=== PATIENT | male | born 1945 | race African-American/Black ===

== ENCOUNTER 2016-08-20 13:10 | Inpatient (IN) | payer OTHER ==
[~2016-08-20] VITALS: Ht 182.9 cm; Wt 65.4 kg
[~2016-08-20 13:10] MED LIST: CARB25TA PO; CLON.1 PO; GLIP5 PO
[2016-08-20 13:20] VITALS: BP 118/74; PULSE 82; RESP 16; TEMP 98.7; O2SAT 100
[2016-08-20 13:46] LABS: BASOPHIL % 0.4 % (0.0-2.0); EOSINOPHIL % 0.6 % (0.0-4.0); HEMATOCRIT 33.6 % (39.0-51.0); HEMO FLAGS DIFF FINAL; LYMPH % 25.1 % (9.0-44.0); LYMPHOCYTE # 1.2 TH/MM3 (1.0-4.8); MEAN CELL VOLUME 89.8 FL (80.0-100.0); MEAN CORPUSCULAR HEMOGLOBIN 29.6 PG (27.0-34.0); MONO % 8.8 % (0.0-8.0); NEUT % 65.1 % (16.0-70.0); PLATELET COUNT 138 TH/MM3 (150-450); RED BLOOD COUNT 3.74 MIL/MM3 (4.50-5.90); RED CELL DISTRIBUTION WIDTH 13.1 % (11.6-17.2); WHITE BLOOD COUNT 4.6 TH/MM3 (4.0-11.0)
--- NOTE | 2016-08-20 13:54 | PD ---
HPI Chief Complaint: Psychiatric Symptoms Time Seen by Provider: 13:51 Travel History International Travel<30 days: No Contact w/Intl Traveler<30days: No Traveled to known affect area: No History of Present Illness HPI 71-year-old male presents to the emergency Department under Beck act by psychiatrist. He apparently has history of schizophrenia, depression, Parkinson 's disease, AMS. According to the Beck act, the patient has been aggressive. And has been spitting out his medications. He was placed under Beck act by psychiatrist to stabilize his medications. The patient is alert and oriented to person and place, but not time. This appears to be his baseline. He continues to talk about possible worms in his back. He does have abrasions to the back. The patient does not answer questions appropriately and talks about worms instead. PFSH Past Medical History Arthritis: No Blood Disorders: No Heart Rhythm Problems: No Cancer: No Cardiovascular Problems: Yes (HTN) High Cholesterol: No Chemotherapy: No Chest Pain: No Congestive Heart Failure: No Diminished Hearing: Yes (R EAR) Endocrine: No Gastrointestinal Disorders: No Hypertension: Yes Immune Disorder: No Kidney Stones: No Musculoskeletal: Yes (DJD) Neurologic: No Parkinson's Disease: Yes Psychiatric: No Reproductive: Yes (DIFFICULTY URINATING CHRONICALLY) Respiratory: No Myocardial Infarction: No Radiation Therapy: No Renal Failure: No Sickle Cell Disease: No Sleep Apnea: No Past Surgical History AICD: No Arteriovenous Shunt: No Ear Surgery: No Endocrine Surgery: No Eye Surgery: No Insulin Pump: No Joint Replacement: No Oral Surgery: No Pacemaker: No Other Surgery: Yes (CYST REMOVED FROM BACK) Social History Alcohol Use: Yes (RARE) Tobacco Use: No (QUIT ) Substance Use: No Allergies-Medications (Allergen,Severity, Reaction): Coded Allergies: Penicillin (Verified Allergy, Mild, SWELLING, 08/20/16) Reported Meds & Prescriptions Reported Meds & Active Scripts Active Reported Glucotrol (Glipizide) 5 Mg Tab Unknown Dose PO Catapres (Clonidine HCl) 0.1 Mg Tab Unknown Dose PO Q8HR Sinemet 25/100 (Carbidopa/Levodopa) 25 Mg/100 Mg Tab Unknown Dose PO BID Review of Systems Except as stated in HPI: all other systems reviewed are Neg Physical Exam Narrative GENERAL: Well-nourished, well-developed male patient, afebrile. SKIN: Focused skin assessment warm/dry. Patient has superficial abrasions to the back. HEAD: Normocephalic. Atraumatic. EYES: No scleral icterus. No injection or drainage. NECK: Supple, trachea midline. No JVD or lymphadenopathy. CARDIOVASCULAR: Regular rate and rhythm without murmurs, gallops, or rubs. RESPIRATORY: Breath sounds equal bilaterally. No accessory muscle use. Lungs sounds are clear to auscultation. GASTROINTESTINAL: Abdomen soft, non-tender, nondistended. MUSCULOSKELETAL: No cyanosis, or edema. BACK: Nontender without obvious deformity. No CVA tenderness. PSYCHIATRIC: Patient does not answer questions appropriately and talks about worms in his back. He is alert and oriented to person and place. Data Data Last Documented VS Vital Signs Date Time Temp Pulse Resp B/P Pulse Ox O2 Delivery O2 Flow Rate FiO2 08/20/16 13:20 98.7 82 16 118/74 100 Orders Complete Blood Count With Diff (08/20/16 13:27) Comprehensive Metabolic Panel (08/20/16 13:27) Psych Screen (08/20/16 13:27) Drug Screen, Random Urine (08/20/16 13:27) Urinalysis - C+S If Indicated (08/20/16 13:49) Valproic Acid (Depakene) (08/20/16 13:49) Ct Brain W/O Iv Contrast(Rout) (08/20/16 ) Cath For Specimen (08/20/16 14:40) Labs Laboratory Tests Test 08/20/16 08/20/16 13:20 14:50 White Blood Count 4.6 TH/MM3 Red Blood Count 3.74 MIL/MM3 Hemoglobin 11.1 GM/DL Hematocrit 33.6 % Mean Corpuscular Volume 89.8 FL Mean Corpuscular Hemoglobin 29.6 PG Mean Corpuscular Hemoglobin 33.0 % Concent Red Cell Distribution Width 13.1 % Platelet Count 138 TH/MM3 Mean Platelet Volume 8.9 FL Neutrophils (%) (Auto) 65.1 % Lymphocytes (%) (Auto) 25.1 % Monocytes (%) (Auto) 8.8 % Eosinophils (%) (Auto) 0.6 % Basophils (%) (Auto) 0.4 % Neutrophils # (Auto) 3.0 TH/MM3 Lymphocytes # (Auto) 1.2 TH/MM3 Monocytes # (Auto) 0.4 TH/MM3 Eosinophils # (Auto) 0.0 TH/MM3 Basophils # (Auto) 0.0 TH/MM3 CBC Comment DIFF FINAL Differential Comment Sodium Level 140 MEQ/L Potassium Level 4.2 MEQ/L Chloride Level 104 MEQ/L Carbon Dioxide Level 28.1 MEQ/L Anion Gap 8 MEQ/L Blood Urea Nitrogen 29 MG/DL Creatinine 1.61 MG/DL Estimat Glomerular Filtration 51 ML/MIN Rate Random Glucose 184 MG/DL Calcium Level 8.6 MG/DL Total Bilirubin 0.3 MG/DL Aspartate Amino Transf 17 U/L (AST/SGOT) Alanine Aminotransferase 17 U/L (ALT/SGPT) Alkaline Phosphatase 112 U/L Total Protein 7.3 GM/DL Albumin 3.6 GM/DL Valproic Acid (Depakene) Level 44 MCG/ML Urine Color YELLOW Urine Turbidity CLEAR Urine pH 6.0 Urine Specific [place] 1.027 Urine Protein TRACE mg/dL Urine Glucose (UA) NEG mg/dL Urine Ketones NEG mg/dL Urine Occult Blood NEG Urine Nitrite NEG Urine Bilirubin NEG Urine Urobilinogen 4.0 MG/DL Urine Leukocyte Esterase NEG Urine RBC 2 /hpf Urine WBC LESS THAN 1 /hpf Urine Squamous Epithelial <1 /hpf Cells Urine Mucus FEW /lpf Microscopic Urinalysis Comment CULT NOT INDICATED Urine Opiates Screen NEG Urine Barbiturates Screen NEG Urine Amphetamines Screen NEG Urine Benzodiazepines Screen NEG Urine Cocaine Screen NEG Urine Cannabinoids Screen NEG MDM Medical Decision Making Medical Screen Exam Complete: Yes Emergency Medical Condition: Yes Medical Record Reviewed: Yes Interpretation(s) CT brain - CONCLUSION: Normal examination. Differential Diagnosis Schizophrenia versus depression versus electrolyte abnormality versus intracranial abnormality Narrative Course 71-year-old male presents to the emergency department under Beck act by psychiatrist at his nursing facility. According the Beck act, he has been more aggressive with staff and spitting out his medications. CBC, CMP, Depakote level, UA, urine drug screen, CT of the brain are ordered and pending. CBC shows no acute abnormality. CMP shows BUN 29, creatinine 1.61, glucose 184. UA shows no acute infection. UDS is negative. Depakote level is 44. CT of the brain is normal. Patient is medically cleared for psychiatric screening and disposition. Mental health screening discussed with the patient. Psychiatric screen ordered. Diagnosis Primary Impression: Schizophrenia Qualified Code: F20.9 - Schizophrenia, unspecified type Additional Instructions: Patient is medically cleared for psychiatric screening and disposition. Condition: Stable RafiChelsey correa CHARLI August 20, 2016 13:54
[2016-08-20 14:19] LABS: ALT (GPT) 17 U/L (12-78); ANION GAP 8 MEQ/L (5-15); AST (GOT) 17 U/L (15-37); BICARBONATE 28.1 MEQ/L (21.0-32.0); BLOOD UREA NITROGEN 29 MG/DL (7-18); CHLORIDE 104 MEQ/L (98-107); GLOMERULAR FILTRATION RATE 51 ML/MIN (>89); POTASSIUM 4.2 MEQ/L (3.5-5.1); SODIUM (NA) 140 MEQ/L (136-145)
[2016-08-20 14:22] LABS: ALKALINE PHOSPHATASE 112 U/L (45-117); TOTAL BILIRUBIN ADULT 0.3 MG/DL (0.2-1.0)
--- NOTE | 2016-08-20 14:36 | RADRPT ---
EXAM DATE/TIME: 08/20/2016 14:08 [place] COMPARISON: No previous studies available for comparison. INDICATIONS : ALTERED MENTAL STATUS. RADIATION DOSE: 56.79 CTDIvol (mGy) MEDICAL HISTORY : Hypertension. Parkinsons. SURGICAL HISTORY : None. ENCOUNTER: Initial ACUITY: 1 day PAIN SCALE: 2/10 LOCATION: cranial TECHNIQUE: Multiple contiguous axial images were obtained of the head. Using automated exposure control and adj ustment of the mA and/or kV according to patient size, radiation dose was kept as low as reasonably a chievable to obtain optimal diagnostic quality images. FINDINGS: CEREBRUM: The ventricles are normal for age. No evidence of midline shift, mass lesion, hemorrhage or acute in farction. No extra-axial fluid collections are seen. POSTERIOR FOSSA: The cerebellum and brainstem are intact. The 4th ventricle is midline. The cerebellopontine angle i s unremarkable. EXTRACRANIAL: The visualized portion of the orbits is intact. SKULL: The calvaria is intact. No evidence of skull fracture. CONCLUSION: Normal examination. Loyd Adames MD on August 20, 2016 at 14:22 Board Certified Radiologist. This report was verified electronically.
[2016-08-20 15:30] LABS: BLOOD, URINE NEG (NEG); COMMENT (UR) CULT NOT INDICATED; CULTURE IF INDICATED CULT NOT INDICATED; GLUCOSE,URINE NEG (NEG); KETONE, URINE NEG (NEG); MUCUS URINE FEW /lpf (OCC); NITRITE,URINE NEG (NEG); SQUAMOUS EPITHELIAL CELL URINE <1 /hpf (0-5); URINE COLOR YELLOW (YELLW/STRAW)
[2016-08-20 15:53] LABS: AMPHETAMINE, URINE NEG (NEG); BARBITURATES, URINE NEG (NEG); COCAINE, URINE NEG (NEG)
[2016-08-20] MEDS ORDERED: SINE25TA PO (16:57)
[2016-08-20] MEDS ORDERED: BICA50TA PO (16:57)
[2016-08-20] MEDS ORDERED: ASPI81CH3 CHEW (16:57)
[2016-08-20] MEDS ORDERED: ATOR20TA15 PO (16:57)
[2016-08-20] MEDS ORDERED: LACT10SO PO (17:01)
[2016-08-20] MEDS ORDERED: GABA100C4 PO (17:01)
[2016-08-20] MEDS ORDERED: DEPA500T3 PO (17:01)
[2016-08-20] MEDS ORDERED: RISP1 PO (17:11)
[2016-08-20] MEDS ORDERED: FLEEENE3 RECTAL (17:11)
[2016-08-20] MEDS ORDERED: MAPA325T PO (17:11)
[2016-08-20] MEDS ORDERED: SERT-129 PO (17:11)
[2016-08-20] MEDS ORDERED: LOPE2CAP PO (17:11)
[2016-08-20] MEDS ORDERED: MYLASUS2 PO (17:11)
[2016-08-20] MEDS ORDERED: LISI-515 PO (17:11)
[2016-08-20] MEDS ORDERED: DULC10SU3 RECTAL (17:11)
[2016-08-20] MEDS ORDERED: THERTAB27 PO (17:11)
[2016-08-20] MEDS ORDERED: LOPE1LIQ3 PO (17:15)
[2016-08-20 17:16] VITALS: BP 180/91; PULSE 80; RESP 18; O2SAT 95
[2016-08-20] MEDS ORDERED: LORA-373 PO (17:23)
[2016-08-20] MEDS ORDERED: TEARSOL10 EACH EYE (17:23)
[2016-08-20] MEDS ORDERED: MILKSUS PO (17:23)
[2016-08-20 18:49] VITALS: BP 175/86; PULSE 80; RESP 20; O2SAT 96
[2016-08-20 19:34] VITALS: BP 169/98; PULSE 78; RESP 20; O2SAT 100
[2016-08-20] MEDS ORDERED: HALOPERIDOL LACTATE 5 MG/ML AMP IM ONE (21:45)
[2016-08-20] MEDS ORDERED: SOD PHOSPHATE/SOD BIPHOSPHATE (ADULT) ENEMA 133ML RECTAL PRN (22:00)
[2016-08-20] MEDS ORDERED: ALUMINUM/MAGNESIUM/SIMETH 30 ML CUP PO PRN ×2 (22:00)
[2016-08-20] MEDS ORDERED: MAGNESIUM HYDROXIDE SUSP 30 ML CUP PO PRN (22:00)
[2016-08-20] MEDS ORDERED: BISACODYL 10 MG SUPP RECTAL PRN (22:00)
[2016-08-20] MEDS ORDERED: ARTIFICIAL TEARS OPTH SOLN 15 ML BTL EACH EYE PRN (22:00)
[2016-08-20] MEDS: LORazepam 2 MG/ML VIAL - age > 65 yrs IM PRN (22:01)
[2016-08-20 23:10] VITALS: BP 168/91; PULSE 75; RESP 20; TEMP 98.8; O2SAT 97
[2016-08-21 04:55] VITALS: BP 173/94; PULSE 60; RESP 18; TEMP 98.5; O2SAT 97
[2016-08-21] MEDS: CARBIDOPA/LEVODOPA 25 MG/100 MG TAB PO SCH ×3 (08:28→17:20)
[2016-08-21] MEDS: MULTIVITAMINS/MINERALS THERAPEUTIC TAB PO SCH (08:28)
[2016-08-21] MEDS: ASPIRIN 81 MG CHEW TAB PO SCH (08:28)
[2016-08-21] MEDS: LACTULOSE SYRUP 20 GM/30 ML CUP PO SCH (08:28)
[2016-08-21] MEDS ORDERED: LISINOPRIL 20 MG TAB PO SCH (09:00)
[2016-08-21] MEDS: BICALUTAMIDE 50 MG TAB PO SCH (09:00)
--- NOTE | 2016-08-21 11:37 | HHI.HP ---
Provisional Diagnosis Admission Date August 20, 2016 at 21:48 [place] I. 1. Schizophrenia, undifferentiated type 2. Rule out major neurocognitive disorder with associated behavioral disturbance [place] II. Deferred [place] V. GAF is unclear at present Certification of Person's Competence To Provide Express and Informed Consent I have personally examined Rolando Brar , a person being served at [facility] on, August 21, 2016 11:37. Express and informed consent means consent voluntarily given in writing, by a competent person, after sufficient explanation and disclosure of the subject matter involved to enable the person to make a knowing and willful decision without any element of force, fraud, deceit, duress, or other form of constraint or coercion. This person is 18 years of age or older, is not now known to be incompetent to consent to treatment with a guardian advocate, and does not have a health care surrogate or proxy currently making medical treatment decisions. I have found this person to be one of the following: [] Competent to provide express and informed consent, as defined above, for voluntary admission to this facility and is competent to provide express and informed consent for treatment. He/she has the consistent capacity to make well reasoned, willful, and knowing decisions concerning his or her medical or mental health treatment. The person fully and consistently understands the purpose of the admission for examination/placement and is fully capable of personally exercising all rights assured [place] [x] Incompetent to provide express and informed consent to voluntary admission, and this is incompetent to provide express and informed consent to treatment. The person must be transferred to involuntary status and a petition for a guardian advocate filed with the Circuit Court. [] Refusing to provide express and informed consent to voluntary admission but is competent to provide express and informed consent for treatment. The person must be discharged or transferred to involuntary status. Form shall be completed within 24 hours of a person's arrival at the receiving facility and filed in the clinical record of each person: 1. Admitted on a voluntary basis 2. Permitted to provide express and informed consent to his/her own treatment 3. Allowed to transfer from involuntary to voluntary status 4. Prior to permitting a person to consent to his or her own treatment after having been previously found incompetent to consent to treatment. History of Present Illness Capacity: Lacks Capacity HPI Mr. Brar is a 71 year-old male with a history of schizophrenia , depression and anxiety disorder per notes from his outpatient psychiatrist who presents from his [facility] under a Beck act by [facility]'s office alleging that the patient has been delusional and acting out at his facility. I have reviewed the documentation that accompanies the patient from the facility including a medication administration record, notes from the patient's outpatient psychiatrist as well as nursing notes from the facility. Reviewing I electronic medical record, I see no prior psychiatric contact at [facility]. Patient seen and examined. Chart reviewed. Case discussed with nurse on the inpatient psychiatric unit. Per nursing staff, there has been no behavioral disturbance observed here on the unit. On my examination today, the patient presents as confused. He is calm and generally cooperative with examination however. Mental status testing is detailed below. He denies any audiovisual hallucinations. I can elicit no frankly delusional beliefs, although his thoughts do seem fairly disorganized. He denies any suicidal or homicidal ideation. He denies any issues with mood. Psychiatric interview is limited because of his current cognitive impairment. I am unable to obtain any past psychiatric, family, chemical dependency or social history from this patient because of his degree of psychiatric impairment. Review of Systems ROS Limitations: Poor Historian Other Unable to obtain meaningful ROS because of current cognitive impairment. Past Psych History Psychological trauma history Unable to obtain from patient because of cognitive impairment. Violence risk - others (6 mos) Indeterminate. Allegations of acting out at referring facility not observed here on the unit. Violence risk - self (6 mos) Indeterminate. Substance Abuse History Drugs/Alcohol past 12 months Unable to obtain from patient Past Family Social History Coded Allergies: Penicillin (Verified Allergy, Mild, SWELLING, 08/20/16) Past Medical History See electronic medical record Reported Medications Artificial Tear Solution Opth Drops (Tears Again Opth Drops)1.4% Soln1 Drop EACH EYE QID PRN (DRY EYE) 08/20/16 Lorazepam 0.5 Mg Tab0.5 Mg PO TID PRN (AGITATION) Ref 0 08/20/16 Magnesium Hydroxide Liq (Milk of Magnesia Liq)400 Mg/5 Ml Susp30 Ml PO Q4HR PRN (CONSTIPATION) #1 BOTTLE Ref 0 08/20/16 Loperamide Liq 1 Mg/5 Ml Liq2 Mg PO DIRECTED PRN (DIARRHEA) #1 BOTTLE Ref 0 Give 4mg (20ml) for the initial dose then 2 mg (10 mL) after each loose stool. Not to exceed 16 mg (80 mL) per day. 08/20/16 Loperamide 2 Mg Cap2 Mg PO DIRECTED PRN (DIARRHEA) Ref 0 Give two capsules for the initial dose, then one capsule after each loose stool. Not to exceed 8 capsules per day. 08/20/16 Sodium Phosphates Rectal (Fleet Enema Rectal)7-19 Gm/118 Ml [id number] Ml RECTAL DAILY PRN (IF NO BM X 48HRS FROM SUPP) Ref 0 08/20/16 Bisacodyl Supp (Dulcolax Supp)10 Mg Supp10 Mg RECTAL DAILY PRN (IF NO BM FROM MOM) #12 SUPP Ref 0 08/20/16 Acetaminophen (Mapap)325 Mg Ryw002 Mg PO Q6HR PRN (MUSCULAR BACK PAIN) Ref 0 08/20/16 Qzrpmiqa-Qrrynruoc-Xpgkfittyyr Liq (Mylanta Liq)200-200-20 Mg/5 Ml Susp30 Ml PO Q4HR PRN (INDIGESTION) Ref 0 Take between meals or as directed. Shake well. Maximum 120 ml/24 hrs. 08/20/16 Risperidone (Risperdal)1 Mg Tab1 Mg PO BID #60 TAB Ref 0 08/20/16 Multiple Vitamins W/ Minerals (Theragran-M)1 Tab1 Tab PO DAILY Ref 0 08/20/16 Sertraline 100 Mg [id number] Mg PO DAILY #30 TAB Ref 0 08/20/16 Lisinopril 20 Mg Tab20 Mg PO BID #30 TAB Ref 0 08/20/16 Lactulose Liq 10 Gm/15 Ml Soln10 Ml PO DAILY Ref 0 08/20/16 Gabapentin 100 Mg [id number] Mg PO HS #30 CAP Ref 0 08/20/16 Divalproex ER (Depakote ER)500 Mg Vgloa657 Mg PO HS #30 TAB Ref 0 08/20/16 Carbidopa-Levodopa (Sinemet)25-100 Mg Tab1 Tab PO TID #90 TAB Ref 0 08/20/16 Bicalutamide 50 Mg Tab50 Mg PO DAILY #30 TAB Ref 0 Hazardous agent; use appropriate precautions for handling & disposal. 08/20/16 Atorvastatin 20 Mg Tab20 Mg PO HS #30 TAB Ref 0 08/20/16 Aspirin (Aspirin 81 Low Dose)81 Mg Chew81 Mg CHEW DAILY #30 TAB 08/20/16 Discontinued Reported Medications Glipizide (Glucotrol)5 Mg TabUnknown Dose PO 03/16/15 Clonidine Hcl (Catapres)0.1 Mg TabUnknown Dose PO Q8HR 03/16/15 Carbidopa-Levodopa (Sinemet 25/100)25 Mg/100 Mg TabUnknown Dose PO BID 03/16/15 Current Medications Medications (Trade) Dose Ordered Sig/[place] Route Start Time Stop Time Status Last Admin (Ativan) 0.5 mg Q12H PRN PO 08/20/16 22:00 (Ativan Inj) 0.5 mg Q12H PRN IM 08/20/16 22:00 08/20/16 22:01 (Tylenol) 650 mg Q4H PRN PO 08/20/16 22:00 (Milk Of Magnesia Liq) 30 ml DAILY PRN PO 08/20/16 22:00 (Aspirin Chew) 81 mg DAILY PO 08/21/16 09:00 08/21/16 08:28 (Lipitor) 20 mg HS PO 08/21/16 21:00 (Casodex) 50 mg DAILY PO 08/21/16 09:00 (Sinemet 25-100 Mg) 1 tab TID PO 08/21/16 09:00 08/21/16 08:28 (Neurontin) 100 mg HS PO 08/21/16 21:00 (Lactulose Liq) 10 ml DAILY PO 08/21/16 09:00 08/21/16 08:28 (Prinivil) 20 mg BID PO 08/21/16 09:00 08/21/16 08:28 (Theragran M Tab) 1 tab DAILY PO 08/21/16 09:00 08/21/16 08:28 (Mag-Al Plus Susp Liq) 30 ml Q4H PRN PO 08/20/16 22:00 (Dulcolax Supp) 10 mg DAILY PRN RECTAL 08/20/16 22:00 (Fleets Enema (Adult)) 133 ml DAILY PRN RECTAL 08/20/16 22:00 (Tears Naturale Opth Soln) 1 drop QID PRN EACH EYE 08/20/16 22:00 Family History Unable to obtain from patient Social History Unable to obtain from patient Patient's Strengths (min. 2) In a monitored setting. Verbally fluent. Physical Exam Physical examination was completed by ED provider. On my examination today, patient appears to be somewhat thin but well-developed and in no acute physical distress. Patient does have a history per documentation from facility of parkinsonism, but I cannot appreciate any hand tremor or cogwheeling on my examination today. No other motoric abnormalities noted. Laboratories and vitals signs reviewed: Vital Signs Vital Signs Date Time Temp Pulse Resp B/P Pulse Ox O2 Delivery O2 Flow Rate FiO2 08/21/16 04:55 98.5 60 18 173/94 97 08/20/16 19:34 Room Air Lab Results Item Value Date Time White Blood Count 4.6 TH/MM3 08/20/16 1320 Hemoglobin 11.1 GM/DL L 08/20/16 1320 Platelet Count 138 TH/MM3 L 08/20/16 1320 Sodium Level 140 MEQ/L 08/20/16 1320 Potassium Level 4.2 MEQ/L 08/20/16 1320 Chloride Level 104 MEQ/L 08/20/16 1320 Carbon Dioxide Level 28.1 MEQ/L 08/20/16 1320 Blood Urea Nitrogen 29 MG/DL H 08/20/16 1320 Creatinine 1.61 MG/DL H 08/20/16 1320 Aspartate Amino Transf (AST/SGOT) 17 U/L 08/20/16 1320 Alanine Aminotransferase (ALT/SGPT) 17 U/L 08/20/16 1320 Alkaline Phosphatase 112 U/L 08/20/16 1320 Urine Opiates Screen NEG 08/20/16 1450 Urine Barbiturates Screen NEG 08/20/16 1450 Urine Amphetamines Screen NEG 08/20/16 1450 Urine Benzodiazepines Screen NEG 08/20/16 1450 Urine Cocaine Screen NEG 08/20/16 1450 Urine Cannabinoids Screen NEG 08/20/16 1450 Valproic Acid (Depakene) Level 44 MCG/ML L 08/20/16 1320 Alcohol level was not obtained. Reviewing old laboratories, thrombocytopenia appears to be chronic, at least since 2011, but the anemia and decreased GFR are both new. Last Impressions Head CT 08/20/16 0000 Signed Impressions: Service Date/Time: Saturday, August 20, 2016 14:08 - CONCLUSION: Normal examination. Loyd Adames MD Mental Status Examination Patient is in hospital [facility]. He is somewhat disheveled. He is awake and alert and oriented to person only. He is able to register 1 out of 3 items but recalled 0 out of 3 at 3 minutes. He is able to name one out of 2 items. He is unable to repeat a phrase. He is unable to spell the word world backwards. Speech is within normal limits for rate, tone and volume. Language and fund of knowledge seem reduced. Mood is fair and affect is blunted. Thought process somewhat disorganized. Associations somewhat loose. No irina delusions. Denies audiovisual hallucinations. Denies suicidal or homicidal ideation. Insight and judgment are poor presently. Assessment & Plan Problem List: (1) Schizophrenia ICD Code: F20.9 Assessment & Plan This is a 71-year-old male with a history of schizophrenia who presents in transfer from nursing facility under a Beck act. Patient presents to me as chiefly cognitively impaired, and I wonder if his current presentation is not more consistent with dementia with behavioral disturbance. Depakote level is subtherapeutic, but this is to be expected given the low dose that he is prescribed on an outpatient basis. I will admit the patient to the inpatient psychiatric unit for observation and stabilization of necessary. Admit inpatient. Involuntary status. I've completed first opinion. Consult for second opinion. Request healthcare surrogate and guardian advocate. Check a TSH, ammonia, B12, RPR in case cognitive impairment is new. Head CT was performed in the ED. Patient's home psychotropics include Depakote ER 500 mg at bedtime, Zoloft 100 mg daily, Risperdal 0.5 mg twice daily. In light of patient's anemia and thrombocytopenia, which may be Depakote-induced, I will hold his Depakote for now as it does not appear this is for a seizure indication. I will continue his Zoloft. Given his chart history of parkinsonism, I will replace the Risperdal with low-dose Seroquel, 25 mg twice daily to start. I will continue patient's general medical medications as ordered, except that I will hold his lisinopril in light of his decreased GFR. I will consult the hospitalist for further medical management. Low-dose Haldol as needed for agitation, low-dose Ativan as needed for anxiety, Benadryl as needed for EPS, melatonin as needed for sleep. Vitals every shift. Counselor to see and obtain collateral. Disposition planning. Estimated length of stay: 10-13 days, longer if new placement is required. Discharge Planning Pending stabilization Request HC Surrog/Guard Advoc?: Yes Problem Qualifiers (1) Schizophrenia: Qualified Code: F20.3 - Undifferentiated schizophrenia Cr Chanel MD August 21, 2016 11:37
[2016-08-21] MEDS ORDERED: cloNIDine HCL 0.1 MG TAB PO PRN ×3 (13:15→14:00)
[2016-08-21] MEDS ORDERED: HALOPERIDOL LACTATE 5 MG/ML AMP IM PRN (13:15)
[2016-08-21] MEDS ORDERED: HALOPERIDOL 2 MG TAB PO PRN (13:15)
[2016-08-21] MEDS ORDERED: NIFEdipine 30 MG SUSTAINED RELEASE TAB PO ONE (13:45)
--- NOTE | 2016-08-21 13:47 | PD.CONS ---
HPI Service [facility] Consult Requested By Reason for Consult medical management; hypertension/ anemia Primary Care Physician [facility] Diagnoses: History of Present Illness patient is a 71 y/o male with history of schizophrenia and parkinson's disease who was admitted to the psych unit because of aggressive behavior. patient is not a good historian and most of the information was obtained from the medical record. as part of the initial work-up he was noticed to have anemia and renal insufficiency for which the medicine was consulted. at the time of my evaluation he was resting comfortably with no distress with no chest pain, sob or abdominal pain. Review of Systems ROS Limitations: Poor Historian Past Family Social History Allergies: Coded Allergies: Penicillin (Verified Allergy, Mild, SWELLING, 08/20/16) Past Medical History hypertension dyslipidemia parkinson's disease schizophrenia Past Surgical History cyst removal from the back Reported Medications aspirin atorvastatin sinemet lisinopril Active Ordered Medications Current Medications Haloperidol Lactate (Haldol Inj) 5 mg ONCE ONCE IM Last administered on 21:45; Start 08/20/16 at 21:45; Stop 08/20/16 at 21:46; Status DC Lorazepam (Ativan) 0.5 mg Q12H PRN PO MODERATE TO SEVERE ANXIETY; Start at 22:00 Lorazepam (Ativan Inj) 0.5 mg Q12H PRN IM MODERATE TO SEVERE ANXIETY Last administered on 08/20/16 22:01; Start 08/20/16 at 22:00 Acetaminophen (Tylenol) 650 mg Q4H PRN PO Pain 1-5 or Temp >101F; Start at 22:00 Magnesium Hydroxide (Milk Of Magnesia Liq) 30 ml DAILY PRN PO CONSTIPATION; Start 08/20/16 at 22:00 Al Hydrox/Mg Hydrox/Simethicone (Mag-Al Plus Susp Liq) 30 ml Q6H PRN PO DYSPEPSIA; Start 08/20/16 at 22:00; Stop 08/20/16 at 22:00; Status DC Aspirin (Aspirin Chew) 81 mg DAILY PO Last administered on 08/21/16 08:28; Start 08/21/16 at 09:00 Atorvastatin Calcium (Lipitor) 20 mg HS PO ; Start 08/21/16 at 21:00 Bicalutamide (Casodex) 50 mg DAILY PO ; Start 08/21/16 at 09:00 Carbidopa/Levodopa (Sinemet 25-100 Mg) 1 tab TID PO Last administered on 08:28; Start 08/21/16 at 09:00 Gabapentin (Neurontin) 100 mg HS PO ; Start 08/21/16 at 21:00 Lactulose (Lactulose Liq) 10 ml DAILY PO Last administered on 08/21/16 08:28; Start 08/21/16 at 09:00 Lisinopril (Prinivil) 20 mg BID PO Last administered on 08/21/16 08:28; Start 08/21/16 at 09:00; Stop 08/21/16 at 13:20; Status DC Multivitamins/ Minerals Therapeutic (Theragran M Tab) 1 tab DAILY PO Last administered on 08/21/16 08:28; Start 08/21/16 at 09:00 Al Hydrox/Mg Hydrox/Simethicone (Mag-Al Plus Susp Liq) 30 ml Q4H PRN PO INDIGESTION; Start 08/20/16 at 22:00 Bisacodyl (Dulcolax Supp) 10 mg DAILY PRN RECTAL SEE LABEL COMMENTS; Start 08/20 at 22:00 Sodium Biphosphate/ Sodium Phosphate (Fleets Enema (Adult)) 133 ml DAILY PRN RECTAL SEE LABEL COMMENT; Start 08/20/16 at 22:00 Artificial Tears (Tears Naturale Opth Soln) 1 drop QID PRN EACH EYE DRY EYES; Start 08/20/16 at 22:00 Diphenhydramine HCl (Benadryl) 25 mg Q6H PRN PO EXTRA PYRAMIDAL SYMPTOMS; Start 08/21/16 at 13:15 Diphenhydramine HCl (Benadryl Inj) 25 mg Q6H PRN IM EPS, unable to take PO.; Start 08/21/16 at 13:15 Melatonin (Melatonin) 5 mg HS PRN PO INSOMNIA; Start 08/21/16 at 13:15 Haloperidol (Haldol) 2 mg Q8H PRN PO SEVERE AGITATION; Start 08/21/16 at 13:15 Haloperidol Lactate (Haldol Inj) 2 mg Q8H PRN IM SEVERE AGITATION; Start at 13:15 Quetiapine Fumarate (SEROquel) 25 mg BID PO ; Start 08/21/16 at 21:00 Clonidine (Catapres) 0.1 mg Q8HR PRN PO SBP>180 or DBP>100; Start 08/21/16 at 13 :15 Sertraline HCl (Zoloft) 100 mg DAILY PO ; Start 08/22/16 at 09:00 Social History ex-smoker. Physical Exam Vital Signs Vital Signs Date Time Temp Pulse Resp B/P Pulse Ox O2 Delivery O2 Flow Rate FiO2 08/21/16 04:55 98.5 60 18 173/94 97 08/20/16 23:10 98.8 08/20/16 23:10 75 20 168/91 97 08/20/16 19:34 78 20 169/98 100 Room Air 08/20/16 18:49 80 20 175/86 96 Room Air 08/20/16 17:16 80 18 180/91 95 Physical Exam GENERAL: This is a well-nourished, well-developed patient, in no apparent distress. SKIN: No rashes, ecchymoses or lesions. Cool and dry. HEAD: Atraumatic. Normocephalic. No temporal or scalp tenderness. EYES: Pupils equal round and reactive. Extraocular motions intact. No scleral icterus. No injection or drainage. ENT: Nose without bleeding, purulent drainage or septal hematoma. Throat without erythema, tonsillar hypertrophy or exudate. Uvula midline. Airway patent. NECK: Trachea midline. No JVD or lymphadenopathy. Supple, nontender, no meningeal signs. CARDIOVASCULAR: Regular rate and rhythm without murmurs, gallops, or rubs. RESPIRATORY: Clear to auscultation. Breath sounds equal bilaterally. No wheezes , rales, or rhonchi. GASTROINTESTINAL: Abdomen soft, non-tender, nondistended. No hepato-splenomegaly , or palpable masses. No guarding. MUSCULOSKELETAL: Extremities without clubbing, cyanosis, or edema. No joint tenderness, effusion, or edema noted. No calf tenderness. Negative Homans sign bilaterally. NEUROLOGICAL: Awake and alert. Laboratory Laboratory Tests Test 08/20/16 14:50 Urine Color YELLOW Urine Turbidity CLEAR Urine pH 6.0 Urine Specific [place] 1.027 Urine Protein TRACE Urine Glucose (UA) NEG Urine Ketones NEG Urine Occult Blood NEG Urine Nitrite NEG Urine Bilirubin NEG Urine Urobilinogen 4.0 Urine Leukocyte Esterase NEG Urine RBC 2 Urine WBC LESS THAN 1 Urine Squamous Epithelial <1 Cells Urine Mucus FEW Microscopic Urinalysis Comment CULT NOT INDICATED Urine Opiates Screen NEG Urine Barbiturates Screen NEG Urine Amphetamines Screen NEG Urine Benzodiazepines Screen NEG Urine Cocaine Screen NEG Urine Cannabinoids Screen NEG Result Diagram: 08/20/16 1320 08/20/16 1320 Imaging Last Impressions Head CT 08/20/16 0000 Signed Impressions: Service Date/Time: Saturday, August 20, 2016 14:08 - CONCLUSION: Normal examination. Loyd Adames MD Assessment and Plan Assessment and Plan A/P - schizophrenia with aggressive behavior management per psych. -hypertension; lisniopril on hold due to renal insufficiency- one dose of procardia today- clonidien prn will monitor and adjust the regimen as needed. -renal insufficiency; looks chronic- will monitor the renal function -anemia- normocytic, normochromic -likely due to chronic disease- check the stool for blood and obtain the iron panel -parkinson's disease; resumed Sinemet -dyslipidemia; resumed statin thank you for the consult. Discussed Condition With the patient. Bowen Hartmann MD August 21, 2016 13:47
[2016-08-21 14:00] VITALS: BP 116/77
[2016-08-21 14:07] LABS: BASOPHIL % 0.5 % (0.0-2.0); HEMATOCRIT 36.3 % (39.0-51.0); HEMO FLAGS DIFF FINAL; LYMPH % 23.9 % (9.0-44.0); LYMPHOCYTE # 1.1 TH/MM3 (1.0-4.8); MEAN CELL VOLUME 90.7 FL (80.0-100.0); MEAN CORPUSCULAR HEMOGLOBIN 29.8 PG (27.0-34.0); MEAN CORPUSCULAR HGB CONC 32.8 % (32.0-36.0); MONO % 9.2 % (0.0-8.0); NEUT % 65.4 % (16.0-70.0); PLATELET COUNT 158 TH/MM3 (150-450); RED CELL DISTRIBUTION WIDTH 13.1 % (11.6-17.2); WHITE BLOOD COUNT 4.7 TH/MM3 (4.0-11.0)
[2016-08-21 14:27] LABS: ANION GAP 6 MEQ/L (5-15); BICARBONATE 27.2 MEQ/L (21.0-32.0); BLOOD UREA NITROGEN 27 MG/DL (7-18); CHLORIDE 103 MEQ/L (98-107); GLOMERULAR FILTRATION RATE 64 ML/MIN (>89); POTASSIUM 4.4 MEQ/L (3.5-5.1); SODIUM (NA) 136 MEQ/L (136-145)
[2016-08-21 14:35] LABS: TRANSFERRIN IRON PROFILE 227 MG/DL (200-360)
[2016-08-21] MEDS: LORazepam 2 MG/ML VIAL - age > 65 yrs IM PRN (14:36)
[2016-08-21 14:52] LABS: FERRITIN 185 NG/ML (26-388)
[2016-08-21 16:42] VITALS: BP 101/68; PULSE 79; RESP 16; TEMP 97.6; O2SAT 99
[2016-08-21] MEDS: ATORVASTATIN 20 MG TAB PO SCH (20:42)
[2016-08-21] MEDS: QUEtiapine FUMARATE 25 MG TAB PO SCH (20:42)
[2016-08-21] MEDS: GABAPENTIN 100 MG CAP PO SCH (20:42)
[2016-08-22 05:29] VITALS: BP 145/84; PULSE 54; RESP 18; TEMP 98.1; O2SAT 100
[2016-08-22 08:09] LABS: AUTOMATED NEUTROPHIL # 2.7 TH/MM3 (1.8-7.7); BASOPHIL % 0.4 % (0.0-2.0); EOSINOPHIL # 0.1 TH/MM3 (0-0.4); EOSINOPHIL % 1.6 % (0.0-4.0); HEMATOCRIT 33.2 % (39.0-51.0); HEMO FLAGS DIFF FINAL; LYMPH % 30.6 % (9.0-44.0); LYMPHOCYTE # 1.4 TH/MM3 (1.0-4.8); MEAN CELL VOLUME 89.8 FL (80.0-100.0); MEAN CORPUSCULAR HEMOGLOBIN 29.8 PG (27.0-34.0); MEAN CORPUSCULAR HGB CONC 33.1 % (32.0-36.0); MONO % 10.4 % (0.0-8.0); PLATELET COUNT 141 TH/MM3 (150-450); RED CELL DISTRIBUTION WIDTH 13.2 % (11.6-17.2); WHITE BLOOD COUNT 4.7 TH/MM3 (4.0-11.0)
[2016-08-22 08:37] LABS: BICARBONATE 28.7 MEQ/L (21.0-32.0)
[2016-08-22] MEDS: SERTRALINE HCL 100 MG TAB PO SCH (09:00)
[2016-08-22] MEDS: MULTIVITAMINS/MINERALS THERAPEUTIC TAB PO SCH ×2 (09:00→10:28)
[2016-08-22 09:10] VITALS: BP 124/81; PULSE 53
[2016-08-22] MEDS: ASPIRIN 81 MG CHEW TAB PO SCH (10:27)
[2016-08-22] MEDS: QUEtiapine FUMARATE 25 MG TAB PO SCH ×2 (10:27→20:48)
[2016-08-22] MEDS: CARBIDOPA/LEVODOPA 25 MG/100 MG TAB PO SCH ×3 (10:27→18:21)
[2016-08-22] MEDS: BICALUTAMIDE 50 MG TAB PO SCH (10:28)
[2016-08-22] MEDS: LORazepam 0.5 MG TAB age > 65 yrs PO PRN (10:30)
[2016-08-22] MEDS: LACTULOSE SYRUP 20 GM/30 ML CUP PO SCH (10:32)
--- NOTE | 2016-08-22 13:45 | HHI.PYPN ---
Subjective Remarks Patient seen and examined. Chart reviewed. Case discussed with nursing staff. On my examination today, the patient is sitting calmly in the day area. His cognitive status seems unchanged from yesterday. He seems to be mildly sedated , possibly related to psychotropics, although he did receive PRN doses of Ativan yesterday and this morning. No other evident side effects from medications. No other issues noted. Review of Systems ROS Limitations: Poor Historian Other Cognitive impairment limits ROS Objective Alert: Yes [place]: Person Mood: Calm Affect: Flat Memory Intact: Comment (impaired) Hallucinations: Other (no AVH) Delusions: No Delusion Type: Other (no delusions) Suicidal: Ideation (no SI voiced) Homicidal: Ideation (no HI voiced) Insight/Judgment Poor Remarks No motor abnormalities noted. Grooming and hygiene poor. Labs Test 08/21/16 08/22/16 13:52 06:36 White Blood Count 4.7 TH/MM3 4.7 TH/MM3 Red Blood Count 4.00 MIL/MM3 3.70 MIL/MM3 Hemoglobin 11.9 GM/DL 11.0 GM/DL Hematocrit 36.3 % 33.2 % Mean Corpuscular Volume 90.7 FL 89.8 FL Mean Corpuscular Hemoglobin 29.8 PG 29.8 PG Mean Corpuscular Hemoglobin 32.8 % 33.1 % Concent Red Cell Distribution Width 13.1 % 13.2 % Platelet Count 158 TH/MM3 141 TH/MM3 Mean Platelet Volume 8.8 FL 9.5 FL Neutrophils (%) (Auto) 65.4 % 57.0 % Lymphocytes (%) (Auto) 23.9 % 30.6 % Monocytes (%) (Auto) 9.2 % 10.4 % Eosinophils (%) (Auto) 1.0 % 1.6 % Basophils (%) (Auto) 0.5 % 0.4 % Neutrophils # (Auto) 3.0 TH/MM3 2.7 TH/MM3 Lymphocytes # (Auto) 1.1 TH/MM3 1.4 TH/MM3 Monocytes # (Auto) 0.4 TH/MM3 0.5 TH/MM3 Eosinophils # (Auto) 0.0 TH/MM3 0.1 TH/MM3 Basophils # (Auto) 0.0 TH/MM3 0.0 TH/MM3 CBC Comment DIFF FINAL DIFF FINAL Differential Comment Sodium Level 136 MEQ/L 138 MEQ/L Potassium Level 4.4 MEQ/L 4.0 MEQ/L Chloride Level 103 MEQ/L 103 MEQ/L Carbon Dioxide Level 27.2 MEQ/L 28.7 MEQ/L Anion Gap 6 MEQ/L 6 MEQ/L Blood Urea Nitrogen 27 MG/DL 27 MG/DL Creatinine 1.33 MG/DL 1.38 MG/DL Estimat Glomerular Filtration 64 ML/MIN 61 ML/MIN Rate Random Glucose 180 MG/DL 125 MG/DL Calcium Level 9.0 MG/DL 8.8 MG/DL Iron Level 71 MCG/DL Total Iron Binding Capacity 318 MCG/DL Percent Iron Saturation 22.3 % Ferritin 185 NG/ML Ammonia 14 MCMOL/L Vitamin B12 Level 676 PG/ML Thyroid Stimulating Hormone 0.771 uIU/ML 3rd Gen Rapid Plasma Reagin NON-REACTIVE Laboratories reviewed. GFR stable. Anemia and thrombocytopenia generally stable. TSH, B12, ammonia and RPR are unremarkable. Vitals/IOs Vital Signs Date Time Temp Pulse Resp B/P Pulse Ox O2 Delivery O2 Flow Rate FiO2 08/22/16 09:10 53 124/81 08/22/16 05:29 98.1 18 100 08/20/16 19:34 Room Air Intake and Output 08/21/16 08/21/16 08/22/16 08:00 16:00 00:00 Intake Total 480 ml 1440 ml Balance 480 ml 1440 ml Assessment & Plan Problem List: (1) Schizophrenia Assessment & Plan: Rule out major neurocognitive disorder ICD Code: F20.9 Assessment & Plan Continue Seroquel as ordered. Continue Zoloft as ordered. Continue to monitor on the inpatient unit. Continue other medications and care as ordered. Justification for Cont. Inpt. Impairment in self-care. High risk for decompensation in a restrictive environment. Discharge Planning Placement Request HC Surrog/Guard Advoc?: Yes Problem Qualifiers (1) Schizophrenia: Qualified Code: F20.3 - Undifferentiated schizophrenia Cr Chanel MD August 22, 2016 13:45
[2016-08-22] MEDS ORDERED: DEXTROSE 50% IN WATER 50 ML VIAL(D50) IV PUSH PRN (15:00)
[2016-08-22] MEDS ORDERED: GLUCAGON 1 MG/ML VIAL OTHER PRN (15:00)
[2016-08-22] MEDS: INSULIN ASPART SUPPLEMENTAL SCALE SQ SCH ×2 (16:00→20:49)
[2016-08-22] MEDS ORDERED: HALOPERIDOL LACTATE 5 MG/ML AMP IM ONE (18:15)
[2016-08-22] MEDS ORDERED: diphenhydrAMINE HCL 50 MG/ML VIAL IM ONE (18:15)
[2016-08-22 18:48] LABS: HEMOGLOBIN A1a 1.2 %; HEMOGLOBIN Ao 82.7 %; HEMOGLOBIN F 1.5 %; HEMOGLOBIN LA1C 2.1 %; HEMOGLOBIN P3 5.8 %
[2016-08-22 19:31] VITALS: BP 126/96; PULSE 77; RESP 17; TEMP 97.9
[2016-08-22] MEDS: GABAPENTIN 100 MG CAP PO SCH (20:48)
[2016-08-22] MEDS: ATORVASTATIN 20 MG TAB PO SCH (20:49)
[2016-08-22] MEDS: MELATONIN 5 MG TAB PO PRN (22:16)
[2016-08-23 05:53] VITALS: BP 134/80; PULSE 73; RESP 16; TEMP 97.4; O2SAT 97
[2016-08-23] MEDS: INSULIN ASPART SUPPLEMENTAL SCALE SQ SCH ×4 (07:00→21:32)
[2016-08-23] MEDS: QUEtiapine FUMARATE 25 MG TAB PO SCH ×2 (09:00→21:25)
[2016-08-23] MEDS: ASPIRIN 81 MG CHEW TAB PO SCH (09:14)
[2016-08-23] MEDS: MULTIVITAMINS/MINERALS THERAPEUTIC TAB PO SCH (09:14)
[2016-08-23] MEDS: SERTRALINE HCL 100 MG TAB PO SCH (09:14)
[2016-08-23] MEDS: CARBIDOPA/LEVODOPA 25 MG/100 MG TAB PO SCH ×3 (09:14→17:03)
[2016-08-23] MEDS: LACTULOSE SYRUP 20 GM/30 ML CUP PO SCH (09:15)
[2016-08-23] MEDS: BICALUTAMIDE 50 MG TAB PO SCH (09:15)
--- NOTE | 2016-08-23 12:37 | HHI.PR ---
Subjective Remarks Follow-up on patient with hypertension, anemia, Parkinson's disease, dyslipidemia and renal insufficiency. Patient seen and examined today. Patient is disoriented. Denies any fever, chills, nausea, vomiting, shortness of breath, chest pain or abdominal pain. Objective Vitals Vital Signs Date Time Temp Pulse Resp B/P Pulse Ox O2 Delivery O2 Flow Rate FiO2 08/23/16 05:53 97.4 73 16 134/80 97 08/22/16 19:31 97.9 77 17 126/96 I/O 08/22/16 08/22/16 08/22/16 08/23/16 08/23/16 08/23/16 07:00 15:00 23:00 07:00 15:00 23:00 Intake Total 120 ml 240 ml 0 ml 240 ml Balance 120 ml 240 ml 0 ml 240 ml Intake Oral 120 ml 0 ml 240 ml Oral Supplement 240 ml # Voids 2 2 1 Result Diagram: 08/22/16 0636 08/22/16 0636 Imaging Last Impressions Head CT 08/20/16 0000 Signed Impressions: Service Date/Time: Saturday, August 20, 2016 14:08 - CONCLUSION: Normal examination. Loyd Adames MD Objective Remarks GENERAL: This is a well-nourished, well-developed patient, in no apparent distress. Patient is sitting up in chair in community room. SKIN: No rashes, ecchymoses or lesions. Cool and dry. HEAD: Atraumatic. Normocephalic. EYES: Extraocular motions intact. No scleral icterus. No injection or drainage. ENT: Nose without bleeding, purulent drainage or septal hematoma. CARDIOVASCULAR: Regular rate and rhythm without murmurs, gallops, or rubs. RESPIRATORY: Clear to auscultation. Breath sounds equal bilaterally. No wheezes , rales, or rhonchi. GASTROINTESTINAL: Abdomen soft, non-tender, nondistended. No hepato-splenomegaly , or palpable masses. No guarding. MUSCULOSKELETAL: Extremities without clubbing, cyanosis, or edema. No joint tenderness, effusion, or edema noted. No calf tenderness. NEUROLOGICAL: Awake and alert. Disoriented. Medications and IVs Current Medications Medications (Trade) Dose Ordered Sig/[place] Route Start Time Stop Time Status Last Admin (Ativan) 0.5 mg Q12H PRN PO 08/20/16 22:00 08/22/16 10:30 (Ativan Inj) 0.5 mg Q12H PRN IM 08/20/16 22:00 08/21/16 14:36 (Tylenol) 650 mg Q4H PRN PO 08/20/16 22:00 (Milk Of Magnesia Liq) 30 ml DAILY PRN PO 08/20/16 22:00 (Aspirin Chew) 81 mg DAILY PO 08/21/16 09:00 08/23/16 09:14 (Lipitor) 20 mg HS PO 08/21/16 21:00 08/22/16 20:49 (Casodex) 50 mg DAILY PO 08/21/16 09:00 08/23/16 09:15 (Sinemet 25-100 Mg) 1 tab TID PO 08/21/16 09:00 08/23/16 09:14 (Neurontin) 100 mg HS PO 08/21/16 21:00 08/22/16 20:48 (Lactulose Liq) 10 ml DAILY PO 08/21/16 09:00 08/23/16 09:15 (Theragran M Tab) 1 tab DAILY PO 08/21/16 09:00 08/23/16 09:14 (Mag-Al Plus Susp Liq) 30 ml Q4H PRN PO 08/20/16 22:00 (Dulcolax Supp) 10 mg DAILY PRN RECTAL 08/20/16 22:00 (Fleets Enema (Adult)) 133 ml DAILY PRN RECTAL 08/20/16 22:00 (Tears Naturale Opth Soln) 1 drop QID PRN EACH EYE 08/20/16 22:00 (Benadryl) 25 mg Q6H PRN PO 08/21/16 13:15 (Benadryl Inj) 25 mg Q6H PRN IM 08/21/16 13:15 (Melatonin) 5 mg HS PRN PO 08/21/16 13:15 08/22/16 22:16 (Haldol) 2 mg Q8H PRN PO 08/21/16 13:15 08/22/16 14:55 (Haldol Inj) 2 mg Q8H PRN IM 08/21/16 13:15 (SEROquel) 25 mg BID PO 5/3/17 21:00 08/23/16 09:00 (Catapres) 0.1 mg Q8HR PRN PO 08/21/16 13:15 (Zoloft) 100 mg DAILY PO 08/22/16 09:00 08/23/16 09:14 (Catapres) 0.1 mg Q8H PRN PO 08/21/16 14:00 (D50w (Vial) Inj) 25 ml UNSCH PRN IV PUSH 08/22/16 15:00 (Glucagon Inj) 1 mg UNSCH PRN OTHER 08/22/16 15:00 A/P Assessment and Plan 71 yo male with schizophrenia with aggressive behavior admitted to psychiatric unit with hospitalist services consulted for medical management of hypertension , anemia and renal insufficiency. Schizophrenia with aggressive behavior Management per psychiatric team Hypertension Lisniopril on hold due to renal insufficiency BP controlled off meds at present Clonidine prn BP elevation with parameters Will monitor and adjust the regimen as needed Renal insufficiency looks chronic creatinine 1.33 -> 1.38 -> todays lab pending avoid nephrotoxic agents encourage fluid intake Continue to monitor Anemia- normocytic, normochromic likely due to chronic disease check the stool for blood iron studies not indicative of GREGORY, likely chronic disease Parkinson's disease resumed Sinemet Dyslipidemia resumed statin DVT prophylaxis patient ambulatory Discussed with patient, nursing staff and Umu Lee August 23, 2016 12:37
--- NOTE | 2016-08-23 12:54 | HHI.PYPN ---
Subjective Remarks Patient seen and examined. Chart reviewed. Patient had an episode of agitation yesterday evening that did not respond even to the Haldol PRN that I had ordered and so I was called and provided orders for additional Haldol and Benadryl. Patient subsequently calmed after that. Case discussed with nursing staff. On my examination today, the patient remains at his confused baseline. He is up and ambulating around the unit. He is presently calm but has an irritable edge. He also appears somewhat internally preoccupied. No irina delusional material. No side effects from medications. No evidence of any sedation from the medications he received yesterday. Review of Systems ROS Limitations: Poor Historian Except as stated in HPI: all other systems reviewed are Neg Objective Alert: Yes [place]: Person Mood: Other (irritable) Affect: Blunted Memory Intact: Comment (impaired) Hallucinations: Other (somewhat internally preoccupied) Delusions: No Delusion Type: Other (no delusions) Suicidal: Ideation (no SI voiced) Homicidal: Ideation (no HI voiced) Insight/Judgment Poor Remarks No abnormal motor movements noted. Labs Labs reviewed. Vitals/IOs Vital Signs Date Time Temp Pulse Resp B/P Pulse Ox O2 Delivery O2 Flow Rate FiO2 08/23/16 05:53 97.4 73 16 134/80 97 08/20/16 19:34 Room Air Intake and Output 08/22/16 08/22/16 08/23/16 08:00 16:00 00:00 Intake Total 0 ml 120 ml 240 ml Balance 0 ml 120 ml 240 ml Assessment & Plan Problem List: (1) Schizophrenia Assessment & Plan: Strongly suspect comorbid major neurocognitive disorder with behavioral disturbance. ICD Code: F20.9 Assessment & Plan Generally titrate Seroquel to 37.5 mg twice daily. Weekend rounding physician, please consider further titrating this agent to target agitation if it persists. I will also titrate patient's Haldol PRN. Hospitalist datapower consultant input noted and appreciated. Continue to monitor on the inpatient unit. Continue other medications and care as ordered. Justification for Cont. Inpt. Impairment in safety. Impairment in reality construction as a consequence of his dementia. Medication changes in process. High risk for decompensation in a restrictive environment. Discharge Planning Pending stabilization. Request HC Surrog/Guard Advoc?: Yes Problem Qualifiers (1) Schizophrenia: Qualified Code: F20.3 - Undifferentiated schizophrenia Cr Chanel MD August 23, 2016 12:54
[2016-08-23 16:23] LABS: POTASSIUM 4.5 MEQ/L (3.5-5.1)
[2016-08-23] MEDS ORDERED: HALOPERIDOL LACTATE 5 MG/ML AMP ONE (18:32)
[2016-08-23] MEDS: HALOPERIDOL LACTATE 5 MG/ML AMP IM PRN (18:36)
[2016-08-23 18:50] VITALS: BP 130/72; PULSE 74; RESP 16; TEMP 97.6; O2SAT 100
[2016-08-23] MEDS: GABAPENTIN 100 MG CAP PO SCH (21:24)
[2016-08-23] MEDS: ATORVASTATIN 20 MG TAB PO SCH (21:24)
[2016-08-24 05:56] VITALS: BP 162/91; PULSE 64; RESP 16; TEMP 97; O2SAT 96
[2016-08-24] MEDS: INSULIN ASPART SUPPLEMENTAL SCALE SQ SCH ×4 (06:44→21:00)
[2016-08-24] MEDS: LACTULOSE SYRUP 20 GM/30 ML CUP PO SCH (08:43)
[2016-08-24] MEDS: ASPIRIN 81 MG CHEW TAB PO SCH (08:43)
[2016-08-24] MEDS: MULTIVITAMINS/MINERALS THERAPEUTIC TAB PO SCH (08:43)
[2016-08-24] MEDS: CARBIDOPA/LEVODOPA 25 MG/100 MG TAB PO SCH ×3 (08:43→17:19)
[2016-08-24] MEDS: QUEtiapine FUMARATE 25 MG TAB PO SCH ×2 (08:43→20:38)
[2016-08-24] MEDS: SERTRALINE HCL 100 MG TAB PO SCH (08:43)
[2016-08-24] MEDS: BICALUTAMIDE 50 MG TAB PO SCH (08:43)
[2016-08-24 09:59] LABS: BICARBONATE 29.9 MEQ/L (21.0-32.0); POTASSIUM 4.1 MEQ/L (3.5-5.1)
--- NOTE | 2016-08-24 12:59 | HHI.PYPN ---
Subjective Remarks Patient was seen and case discussed with nursing. Patient remains with disorganized and intrusive behavior. Last night urinated in front of staff and was karate chopping. Today, he is alert and oriented times to behavior has improved. Continues to be grossly disorganized poor insight into admission Objective Alert: Yes [place]: Person Mood: Other (irritable) Affect: Restricted Memory Intact: Comment (impaired) Hallucinations: Other (somewhat internally preoccupied) Delusions: No Delusion Type: Other (no delusions) Suicidal: Ideation (no SI voiced) Homicidal: Ideation (no HI voiced) Insight/Judgment Poor Labs Test 08/23/16 08/24/16 15:41 07:59 Sodium Level 136 MEQ/L 139 MEQ/L Potassium Level 4.5 MEQ/L 4.1 MEQ/L Chloride Level 103 MEQ/L 102 MEQ/L Carbon Dioxide Level 23.0 MEQ/L 29.9 MEQ/L Anion Gap 10 MEQ/L 7 MEQ/L Blood Urea Nitrogen 38 MG/DL 30 MG/DL Creatinine 1.52 MG/DL 1.41 MG/DL Estimat Glomerular Filtration 55 ML/MIN 60 ML/MIN Rate Random Glucose 152 MG/DL 129 MG/DL Calcium Level 8.4 MG/DL 8.8 MG/DL Vitals/IOs Vital Signs Date Time Temp Pulse Resp B/P Pulse Ox O2 Delivery O2 Flow Rate FiO2 08/24/16 05:56 97.0 64 16 162/91 96 08/20/16 19:34 Room Air Intake and Output 08/23/16 08/23/16 08/24/16 08:00 16:00 00:00 Intake Total 240 ml 600 ml 720 ml Balance 240 ml 600 ml 720 ml Assessment & Plan Problem List: (1) Schizophrenia ICD Code: F20.9 Assessment & Plan Continue current treatment plan Justification for Cont. Inpt. Patient will decompensate in a less restrictive setting Request HC Surrog/Guard Advoc?: Yes Problem Qualifiers (1) Schizophrenia: Qualified Code: F20.3 - Undifferentiated schizophrenia Claudio Garzon DO August 24, 2016 12:59
[2016-08-24] MEDS: LORazepam 0.5 MG TAB age > 65 yrs PO PRN (17:19)
[2016-08-24 18:00] VITALS: BP 175/96; PULSE 75; RESP 17; TEMP 97.3; O2SAT 95
[2016-08-24] MEDS ORDERED: amLODIPine BESYLATE 5 MG TAB PO ONE (19:30)
[2016-08-24] MEDS: GABAPENTIN 100 MG CAP PO SCH (20:38)
[2016-08-24] MEDS: ATORVASTATIN 20 MG TAB PO SCH (20:38)
[2016-08-25] MEDS: INSULIN ASPART SUPPLEMENTAL SCALE SQ SCH ×4 (06:39→21:31)
[2016-08-25 06:45] VITALS: BP 130/66; PULSE 64; RESP 16; TEMP 97.2; O2SAT 98
[2016-08-25] MEDS: LACTULOSE SYRUP 20 GM/30 ML CUP PO SCH (08:58)
[2016-08-25] MEDS: amLODIPine BESYLATE 5 MG TAB PO SCH (08:58)
[2016-08-25] MEDS: MULTIVITAMINS/MINERALS THERAPEUTIC TAB PO SCH (08:58)
[2016-08-25] MEDS: SERTRALINE HCL 100 MG TAB PO SCH (08:58)
[2016-08-25] MEDS: CARBIDOPA/LEVODOPA 25 MG/100 MG TAB PO SCH ×3 (08:58→17:17)
[2016-08-25] MEDS: ASPIRIN 81 MG CHEW TAB PO SCH (08:58)
[2016-08-25] MEDS: BICALUTAMIDE 50 MG TAB PO SCH (08:58)
[2016-08-25] MEDS: QUEtiapine FUMARATE 25 MG TAB PO SCH ×2 (08:59→21:31)
--- NOTE | 2016-08-25 10:13 | HHI.PYPN ---
Subjective Remarks Patient is disorganized. Not answering questions appropriately. He was combative with the staff member after the interview and attempted to force himself to the nursing station. An ETO Zyprexa Ativan and Benadryl was administered. Objective Alert: Yes [place]: Person Mood: Agitated, Other (irritable) Affect: Blunted Memory Intact: Comment (impaired) Hallucinations: Other (somewhat internally preoccupied) Delusions: No Delusion Type: Other (no delusions) Suicidal: Ideation (no SI voiced) Homicidal: Ideation (no HI voiced) Insight/Judgment Poor Vitals/IOs Vital Signs Date Time Temp Pulse Resp B/P Pulse Ox O2 Delivery O2 Flow Rate FiO2 08/25/16 06:45 97.2 64 16 130/66 98 Intake and Output 08/24/16 08/24/16 08/25/16 08:00 16:00 00:00 Intake Total 0 ml 1800 ml Output Total 0 ml Balance 0 ml 1800 ml Assessment & Plan Problem List: (1) Schizophrenia ICD Code: F20.9 Assessment & Plan Continue current treatment plan Justification for Cont. Inpt. Patient will decompensate in a less restrictive setting Request HC Surrog/Guard Advoc?: Yes Problem Qualifiers (1) Schizophrenia: Qualified Code: F20.3 - Undifferentiated schizophrenia Claudio Garzon DO August 25, 2016 10:13
[2016-08-25] MEDS: LORazepam 2 MG/ML VIAL - age > 65 yrs IM PRN (10:15)
[2016-08-25] MEDS: diphenhydrAMINE HCL 50 MG/ML VIAL IM PRN (10:15)
[2016-08-25] MEDS ORDERED: OLANZapine IM 10 MG VIAL IM ONE (10:27)
--- NOTE | 2016-08-25 15:42 | HHI.PR ---
Subjective Remarks Follow-up visit HTN, anemia, Parkinson's disease, HLD, renal insufficiency. Patient seen and examined today. As per nursing, patient was very combative all morning and he was given IM injection of Haldol, Ativan, Benadryl. He was laying in bed, had urinated himself. Eyes opening to tactile stimulation but otherwise does not follow any commands and drowsy. Objective Vitals Vital Signs Date Time Temp Pulse Resp B/P Pulse Ox O2 Delivery O2 Flow Rate FiO2 08/25/16 06:45 97.2 64 16 130/66 98 08/24/16 18:00 97.3 75 17 175/96 95 I/O 08/24/16 08/24/16 08/24/16 08/25/16 08/25/16 08/25/16 07:00 15:00 23:00 07:00 15:00 23:00 Intake Total 0 ml 1800 ml 240 ml Output Total 0 ml Balance 0 ml 1800 ml 240 ml Intake Oral 0 ml 1800 ml 240 ml Output Urine Total 0 ml # Voids 2 4 1 # Bowel Movements 1 Result Diagram: 08/22/16 0636 08/24/16 0759 Imaging Last Impressions Head CT 08/20/16 0000 Signed Impressions: Service Date/Time: Saturday, August 20, 2016 14:08 - CONCLUSION: Normal examination. Loyd Adames MD Objective Remarks GENERAL: This is a well-nourished, well-developed patient, in no apparent distress. Drowsy. SKIN: No rashes, ecchymoses or lesions. Cool and dry. HEAD: Atraumatic. Normocephalic. EYES: Extraocular motions intact. No scleral icterus. No injection or drainage. ENT: Nose without bleeding, purulent drainage. Oral mucosa moist. CARDIOVASCULAR: Regular rate and rhythm without murmurs, gallops, or rubs. RESPIRATORY: Clear to auscultation. Breath sounds equal bilaterally. No wheezes , rales, or rhonchi. GASTROINTESTINAL: Abdomen soft, non-tender, nondistended. Bowel sounds hypoactive MUSCULOSKELETAL: Extremities without clubbing, cyanosis, or edema. NEUROLOGICAL: Drowsy. No verbalization but opens eyes to tactile stimulation. A/P Problem List: (1) HLD (hyperlipidemia) ICD Code: E78.5 Status: Chronic (2) HTN (hypertension) ICD Code: I10 Status: Chronic (3) Parkinson disease ICD Code: G20 Status: Chronic (4) Anemia ICD Code: D64.9 Status: Acute (5) Schizophrenia ICD Code: F20.9 Status: Acute Assessment and Plan 71 yo male with schizophrenia with aggressive behavior admitted to psychiatric unit with hospitalist services consulted for medical management of hypertension , anemia and renal insufficiency. Schizophrenia with aggressive behavior Management per psychiatric team Patient was combative today and was given Haldol, Ativan, Benadryl Hypertension Lisinopril on hold due to renal insufficiency On norvasc 5mg daily Clonidine prn Monitor BP trend. Improved today. Renal insufficiency Chronic, baseline appears to be 1.35-1.45 creatinine 1.33 -> 1.38 -> 1.52 -->1.41 avoid nephrotoxic agents encourage fluid intake Continue to monitor Anemia- normocytic, normochromic likely due to chronic kidney disease iron studies not indicative of GREGORY, likely chronic disease Parkinson's disease resumed Sinemet 25/100mg Dyslipidemia resumed atorvastatin 20mg daily DVT prophylaxis patient ambulatory Discussed with nursing Problem Qualifiers (1) Schizophrenia: Qualified Code: F20.3 - Undifferentiated schizophrenia Marixa Benton August 25, 2016 15:42
[2016-08-25 18:24] VITALS: BP 157/88; PULSE 70; RESP 18; TEMP 98.1
[2016-08-25] MEDS: GABAPENTIN 100 MG CAP PO SCH (21:31)
[2016-08-25] MEDS: ATORVASTATIN 20 MG TAB PO SCH (21:32)
[2016-08-26 06:00] VITALS: BP 144/84; PULSE 56; RESP 20; TEMP 98.2; O2SAT 96
[2016-08-26] MEDS: INSULIN ASPART SUPPLEMENTAL SCALE SQ SCH ×4 (06:08→21:00)
[2016-08-26] MEDS: HALOPERIDOL 1 MG TAB PO PRN (08:23)
[2016-08-26] MEDS: MULTIVITAMINS/MINERALS THERAPEUTIC TAB PO SCH (08:24)
[2016-08-26] MEDS: ASPIRIN 81 MG CHEW TAB PO SCH (08:24)
[2016-08-26] MEDS: amLODIPine BESYLATE 5 MG TAB PO SCH (08:24)
[2016-08-26] MEDS: CARBIDOPA/LEVODOPA 25 MG/100 MG TAB PO SCH ×3 (08:24→18:46)
[2016-08-26] MEDS: SERTRALINE HCL 100 MG TAB PO SCH (08:24)
[2016-08-26] MEDS: QUEtiapine FUMARATE 25 MG TAB PO SCH ×2 (08:25→20:06)
[2016-08-26] MEDS: LACTULOSE SYRUP 20 GM/30 ML CUP PO SCH (08:26)
[2016-08-26] MEDS: BICALUTAMIDE 50 MG TAB PO SCH (08:42)
[2016-08-26 09:25] LABS: BICARBONATE 29.9 MEQ/L (21.0-32.0)
--- NOTE | 2016-08-26 12:33 | HHI.PYPN ---
Subjective Remarks Patient seen and examined. Chart reviewed. I note that the patient had to receive Zyprexa ETO yesterday after he tried to force his way into the nursing station and was combative with staff. Case discussed with nursing staff who reports patient continues to respond to internal stimuli and is very confused. On my examination today, the patient is sitting in the day area. He is at his recent confused baseline. He is indeed responding to internal stimuli. Speech is largely nonsensical although he does say something about the TBS. No evidence side effects from medications. Review of Systems ROS Limitations: Poor Historian Except as stated in HPI: all other systems reviewed are Neg Objective Alert: Yes [place]: Person Mood: Calm (presently calm) Affect: Blunted Memory Intact: Comment (remains impaired) Hallucinations: Other (internally stimulated) Delusions: No Delusion Type: Other (none) Suicidal: Ideation (no SI) Homicidal: Ideation (no HI) Insight/Judgment Poor Remarks Thought process disorganized. Speech rambling. Labs Test 08/26/16 07:57 Sodium Level 141 MEQ/L Potassium Level 4.0 MEQ/L Chloride Level 103 MEQ/L Carbon Dioxide Level 29.9 MEQ/L Anion Gap 8 MEQ/L Blood Urea Nitrogen 22 MG/DL Creatinine 1.43 MG/DL Estimat Glomerular Filtration 59 ML/MIN Rate Random Glucose 125 MG/DL Calcium Level 9.1 MG/DL Labs reviewed. GFR decreased but stable Vitals/IOs Vital Signs Date Time Temp Pulse Resp B/P Pulse Ox O2 Delivery O2 Flow Rate FiO2 08/26/16 06:00 98.2 56 20 144/84 96 Intake and Output 08/25/16 08/25/16 08/25/16 07:59 15:59 23:59 Intake Total 240 ml 360 ml 120 ml Balance 240 ml 360 ml 120 ml Assessment & Plan Problem List: (1) Schizophrenia ICD Code: F20.9 Assessment & Plan Titrate Seroquel to 50 mg twice daily. Continue other medications as ordered. Continue other care as ordered. Justification for Cont. Inpt. Impairment in safety. Impairment in reality construction. Medication changes in process. High risk for decompensation. Discharge Planning Pending psychiatric stabilization. Request HC Surrog/Guard Advoc?: Yes Problem Qualifiers (1) Schizophrenia: Qualified Code: F20.3 - Undifferentiated schizophrenia Cr Chanel MD August 26, 2016 12:33
--- NOTE | 2016-08-26 14:22 | HHI.PR ---
Subjective Remarks Follow-up visit HTN, anemia, Parkinson's disease, HLD, renal insufficiency. Patient seen and examined today. Patient is incoherent but awake. Follows some simple commands otherwise, unable to have intelligible conversation. Appears to be comfortable. As per nursing staff, patient is calmer today but has a tendency to hit people. Objective Vitals Vital Signs Date Time Temp Pulse Resp B/P Pulse Ox O2 Delivery O2 Flow Rate FiO2 08/26/16 06:00 98.2 56 20 144/84 96 08/25/16 18:24 98.1 70 18 157/88 I/O 08/25/16 08/25/16 08/25/16 08/26/16 08/26/16 08/26/16 06:59 14:59 22:59 06:59 14:59 22:59 Intake Total 240 ml 360 ml 360 ml Balance 240 ml 360 ml 360 ml Intake Oral 240 ml 360 ml 360 ml # Voids 1 2 Result Diagram: 08/22/16 0636 08/26/16 0757 Imaging Last Impressions Head CT 08/20/16 0000 Signed Impressions: Service Date/Time: Saturday, August 20, 2016 14:08 - CONCLUSION: Normal examination. Loyd Adames MD Objective Remarks GENERAL: This is a well-nourished, well-developed patient, in no apparent distress. SKIN: No rashes, ecchymoses or lesions. Cool and dry. HEAD: Normocephalic. EYES: No scleral icterus. No injection or drainage. ENT: Nose without bleeding, purulent drainage. Oral mucosa moist. CARDIOVASCULAR: Regular rate and rhythm without murmurs, gallops, or rubs. RESPIRATORY: Clear to auscultation. Breath sounds equal bilaterally. No wheezes , rales, or rhonchi. GASTROINTESTINAL: Abdomen soft, non-tender, nondistended. Bowel sounds hypoactive MUSCULOSKELETAL: Extremities without clubbing, cyanosis, or edema. NEUROLOGICAL: Awake and alert. Unable to have intelligible conversation. Occasionally follow simple commands. Speech is garbled. A/P Problem List: (1) HLD (hyperlipidemia) ICD Code: E78.5 Status: Chronic (2) HTN (hypertension) ICD Code: I10 Status: Chronic (3) Parkinson disease ICD Code: G20 Status: Chronic (4) Anemia ICD Code: D64.9 Status: Acute (5) Schizophrenia ICD Code: F20.9 Status: Acute Assessment and Plan 71 yo male with schizophrenia with aggressive behavior admitted to psychiatric unit with hospitalist services consulted for medical management of hypertension , anemia and renal insufficiency. Schizophrenia with aggressive behavior Management per psychiatric team Patient was combative today and was given Haldol, Ativan, Benadryl Hypertension Lisinopril on hold due to renal insufficiency On norvasc 5mg daily, increased to 10 mg daily secondary to elevated BP. This may also be related to aggressive behavior. Continue to monitor. Clonidine prn Monitor BP trend. Renal insufficiency Chronic, baseline appears to be 1.35-1.45 creatinine 1.33 -> 1.38 -> 1.52 -->1.41 avoid nephrotoxic agents encourage fluid intake Continue to monitor Anemia- normocytic, normochromic likely due to chronic kidney disease iron studies not indicative of GREGORY, likely chronic disease Parkinson's disease resumed Sinemet 25/100mg Dyslipidemia resumed atorvastatin 20mg daily DVT prophylaxis patient ambulatory Discussed with nursing Problem Qualifiers (1) Schizophrenia: Qualified Code: F20.3 - Undifferentiated schizophrenia Marixa Benton August 26, 2016 14:22
[2016-08-26 18:55] VITALS: BP 129/63; PULSE 63; RESP 18; TEMP 97.1
[2016-08-26] MEDS: GABAPENTIN 100 MG CAP PO SCH (20:05)
[2016-08-26] MEDS: ATORVASTATIN 20 MG TAB PO SCH (20:05)
[2016-08-27] MEDS: LORazepam 0.5 MG TAB age > 65 yrs PO PRN (03:04)
[2016-08-27 05:32] VITALS: BP 108/64; PULSE 50; RESP 18; TEMP 97.8; O2SAT 95
[2016-08-27] MEDS: INSULIN ASPART SUPPLEMENTAL SCALE SQ SCH ×4 (06:39→20:12)
[2016-08-27 09:16] VITALS: BP 95/58; PULSE 64
[2016-08-27] MEDS: MULTIVITAMINS/MINERALS THERAPEUTIC TAB PO SCH (09:17)
[2016-08-27] MEDS: ASPIRIN 81 MG CHEW TAB PO SCH (09:17)
[2016-08-27] MEDS: CARBIDOPA/LEVODOPA 25 MG/100 MG TAB PO SCH ×4 (09:17→18:16)
[2016-08-27] MEDS: QUEtiapine FUMARATE 25 MG TAB PO SCH ×2 (09:17→20:36)
[2016-08-27] MEDS: BICALUTAMIDE 50 MG TAB PO SCH (09:17)
[2016-08-27] MEDS: SERTRALINE HCL 100 MG TAB PO SCH (09:17)
[2016-08-27] MEDS: LACTULOSE SYRUP 20 GM/30 ML CUP PO SCH (09:18)
--- NOTE | 2016-08-27 09:44 | HHI.PYPN ---
Subjective Remarks Patient seen and examined. Chart reviewed. Case discussed in treatment team with nurse, counselor and recreation therapist. Per nursing staff, patient was somewhat restless around 3:00 in the morning last night but otherwise was no behavioral problem. It appears he got Ativan PO at that time. On my examination today, the patient is standing in the day area putting away a puzzle. He is at his confused baseline. He is calm. He tells me that he is working on "the accumulation of a puzzle situation." No side effects from meds. Review of Systems ROS Limitations: Poor Historian Except as stated in HPI: all other systems reviewed are Neg Objective Alert: Yes [place]: Person Mood: Calm Affect: Blunted (tending toward flat.) Memory Intact: Comment (Impaired) Hallucinations: Other (Remains int stim) Delusions: No Delusion Type: Other (No delusions) Suicidal: Ideation (no SI) Homicidal: Ideation (no HI) Insight/Judgment Poor Remarks No motor abnormalities noted. Labs Labs reviewed. Vitals/IOs Vital Signs Date Time Temp Pulse Resp B/P Pulse Ox O2 Delivery O2 Flow Rate FiO2 08/27/16 09:16 64 95/58 08/27/16 05:32 97.8 18 95 Intake and Output 08/26/16 08/26/16 08/27/16 08:00 16:00 00:00 Intake Total 240 ml 0 ml 840 ml Output Total 960 ml Balance 240 ml -960 ml 840 ml Assessment & Plan Problem List: (1) Schizophrenia ICD Code: F20.9 Assessment & Plan Continue Seroquel as ordered. To consider titrating this agent, but I also note BP has been on the lower side, and I do not want to lower this too much with Seroquel. May need to adjust antihypertensive first. Continue to monitor on the inpatient unit. Continue other medications and care as ordered. Justification for Cont. Inpt. Impairment in reality construction as a consequence of his dementia. High risk for decompensation in a less restrictive environment. Discharge Planning Per counselor, patient will likely require new placement. Request HC Surrog/Guard Advoc?: Yes Problem Qualifiers (1) Schizophrenia: Qualified Code: F20.3 - Undifferentiated schizophrenia Cr Chanel MD August 27, 2016 09:44
[2016-08-27 12:16] VITALS: BP 97/56; PULSE 55
--- NOTE | 2016-08-27 15:20 | HHI.PR ---
Subjective Remarks Follow-up visit HTN, anemia, Parkinson's disease, HLD, renal insufficiency. Patient seen and examined today. More alert and cooperative. Patient is also more calm compared to previous visits. Continues to be confused but responds to some commands and questions. Denies pain and discomfort. Denies SOB/ dyspnea. Denies chest pain, palpitations, headaches, dizziness. Denies fevers, chills, n/v/d. Denies hematuria, dysuria. Objective Vitals Vital Signs Date Time Temp Pulse Resp B/P Pulse Ox O2 Delivery O2 Flow Rate FiO2 08/27/16 12:16 55 97/56 08/27/16 09:16 64 95/58 08/27/16 05:32 97.8 50 18 108/64 95 08/26/16 18:55 97.1 63 18 129/63 I/O 08/26/16 08/26/16 08/26/16 08/27/16 08/27/16 08/27/16 07:00 15:00 23:00 07:00 15:00 23:00 Intake Total 360 ml 0 ml 840 ml 240 ml Output Total 960 ml Balance 360 ml -960 ml 840 ml 240 ml Intake Oral 360 ml 0 ml 480 ml 240 ml Oral Supplement 360 ml Output Urine Total 960 ml # Voids 2 2 2 Result Diagram: 08/26/16 0757 Objective Remarks GENERAL: This is a well-nourished, well-developed patient, in no apparent distress. SKIN: No rashes, ecchymoses or lesions. Cool and dry. HEAD: Normocephalic. EYES: No scleral icterus. No injection or drainage. ENT: Nose without bleeding, purulent drainage. Oral mucosa moist. CARDIOVASCULAR: Regular rate and rhythm without murmurs, gallops, or rubs. RESPIRATORY: Clear to auscultation. Breath sounds equal bilaterally. No wheezes , rales, or rhonchi. GASTROINTESTINAL: Abdomen soft, non-tender, nondistended. Bowel sounds hypoactive MUSCULOSKELETAL: Extremities without clubbing, cyanosis, or edema. NEUROLOGICAL: Awake and alert. Unable to have intelligible conversation. Occasionally follow simple commands. Speech is garbled. A/P Problem List: (1) HLD (hyperlipidemia) ICD Code: E78.5 Status: Chronic (2) HTN (hypertension) ICD Code: I10 Status: Chronic (3) Parkinson disease ICD Code: G20 Status: Chronic (4) Anemia ICD Code: D64.9 Status: Acute (5) Schizophrenia ICD Code: F20.9 Status: Acute Assessment and Plan 71 yo male with schizophrenia with aggressive behavior admitted to psychiatric unit with hospitalist services consulted for medical management of hypertension , anemia and renal insufficiency. Schizophrenia with aggressive behavior Management per psychiatric team Patient was combative today and was given Haldol, Ativan, Benadryl Hypertension Lisinopril on hold due to renal insufficiency Clonidine prn Patient with low BP, decreased dose of Norvasc to 5 mg daily starting tomorrow. Elevated BP ostomy secondary to aggressive behavior. Not at the patient is more calm and cooperative BP has been within normal and lower than usual after given Norvasc 10 mg. Monitor BP trend. Renal insufficiency Chronic, baseline appears to be 1.35-1.45 creatinine 1.33 -> 1.38 -> 1.52 -->1.41 avoid nephrotoxic agents encourage fluid intake Continue to monitor Anemia- normocytic, normochromic likely due to chronic kidney disease iron studies not indicative of GREGORY, likely chronic disease Parkinson's disease resumed Sinemet 25/100mg Dyslipidemia resumed atorvastatin 20mg daily DVT prophylaxis patient ambulatory Discussed with nursing, patient Stable from Hospitalist standpoint. We will sign off. Reconsult as needed. Problem Qualifiers (1) Schizophrenia: Qualified Code: F20.3 - Undifferentiated schizophrenia Marixa Benton August 27, 2016 15:19
[2016-08-27] MEDS: HALOPERIDOL 1 MG TAB PO PRN (16:03)
[2016-08-27 20:00] VITALS: BP 113/55; PULSE 66; RESP 18; TEMP 97.9
[2016-08-27] MEDS: ATORVASTATIN 20 MG TAB PO SCH (20:35)
[2016-08-27] MEDS: GABAPENTIN 100 MG CAP PO SCH (20:35)
[2016-08-28 05:55] VITALS: BP 139/83; PULSE 66; RESP 18; TEMP 97.4
[2016-08-28] MEDS: INSULIN ASPART SUPPLEMENTAL SCALE SQ SCH ×4 (05:58→20:53)
[2016-08-28] MEDS: LACTULOSE SYRUP 20 GM/30 ML CUP PO SCH (09:00)
[2016-08-28] MEDS: MULTIVITAMINS/MINERALS THERAPEUTIC TAB PO SCH (09:20)
[2016-08-28] MEDS: BICALUTAMIDE 50 MG TAB PO SCH (09:20)
[2016-08-28] MEDS: amLODIPine BESYLATE 5 MG TAB PO SCH (09:21)
[2016-08-28] MEDS: CARBIDOPA/LEVODOPA 25 MG/100 MG TAB PO SCH ×3 (09:22→17:06)
[2016-08-28] MEDS: QUEtiapine FUMARATE 25 MG TAB PO SCH ×3 (09:22→20:52)
[2016-08-28] MEDS: ASPIRIN 81 MG CHEW TAB PO SCH (09:22)
[2016-08-28] MEDS: SERTRALINE HCL 100 MG TAB PO SCH (09:23)
--- NOTE | 2016-08-28 14:38 | HHI.PYPN ---
Subjective Remarks Patient seen and examined. Chart reviewed. Case discussed with nursing staff. Patient was apparently trying to lift chair is in the day area and there was concern for increasing agitation yesterday afternoon and so the patient was medicated with Haldol by mouth. He has been calm so far today per nursing staff. On my examination today, the patient is ambulating around the day area up with a steady gait. No evident side effects from medications. He remains at his confused baseline. Thought process fairly disorganized. No physical complaints. Review of Systems ROS Limitations: Poor Historian Except as stated in HPI: all other systems reviewed are Neg Objective Alert: Yes [place]: Person Mood: Calm Affect: Flat Memory Intact: Comment (remains impaired on clinical exam) Hallucinations: Other (no AVH) Delusions: No Delusion Type: Other (No delusions) Suicidal: Ideation (no SI) Homicidal: Ideation (no HI) Insight/Judgment Poor Remarks No motor abnormalities noted. Thought process remains somewhat disorganized consistent with dementia diagnosis. Speech rambling. Labs Labs reviewed. No new labs. Vitals/IOs Vital Signs Date Time Temp Pulse Resp B/P Pulse Ox O2 Delivery O2 Flow Rate FiO2 08/28/16 05:55 97.4 66 18 139/83 08/27/16 05:32 95 Intake and Output 08/27/16 08/27/16 08/27/16 07:59 15:59 23:59 Intake Total 840 ml 840 ml Balance 840 ml 840 ml Assessment & Plan Problem List: (1) Schizophrenia Assessment & Plan: Suspect underlying neurocognitive disorder ICD Code: F20.9 Assessment & Plan Titrate Seroquel to manage agitation. I will divide this into 3 daily doses to try to provide better coverage for possible later afternoon . Continue to monitor on the inpatient unit. Continue other medications and care as ordered. Justification for Cont. Inpt. Impairment and safety. Impairment in reality construction as a consequence of his dementia. Medication changes in process. High risk for decompensation in a less restrictive environment. Discharge Planning Placement Request HC Surrog/Guard Advoc?: Yes Problem Qualifiers (1) Schizophrenia: Qualified Code: F20.3 - Undifferentiated schizophrenia Cr Chanel MD August 28, 2016 14:38
[2016-08-28 17:31] VITALS: BP 97/60; PULSE 70; RESP 16; TEMP 97.4; O2SAT 96
[2016-08-28] MEDS: LORazepam 0.5 MG TAB age > 65 yrs PO PRN (17:48)
[2016-08-28] MEDS: HALOPERIDOL 1 MG TAB PO PRN (17:48)
[2016-08-28] MEDS: MELATONIN 5 MG TAB PO PRN (20:52)
[2016-08-28] MEDS: GABAPENTIN 100 MG CAP PO SCH (20:52)
[2016-08-28] MEDS: ATORVASTATIN 20 MG TAB PO SCH (20:52)
[2016-08-29 05:33] VITALS: BP 152/89; PULSE 77; RESP 18; TEMP 98.8
[2016-08-29 06:00] VITALS: BP 152/89; PULSE 77; RESP 18; TEMP 98.8; O2SAT 97
[2016-08-29] MEDS: INSULIN ASPART SUPPLEMENTAL SCALE SQ SCH ×4 (06:12→20:35)
[2016-08-29] MEDS: BICALUTAMIDE 50 MG TAB PO SCH (09:23)
[2016-08-29] MEDS: amLODIPine BESYLATE 5 MG TAB PO SCH (09:23)
[2016-08-29] MEDS: CARBIDOPA/LEVODOPA 25 MG/100 MG TAB PO SCH ×3 (09:23→17:23)
[2016-08-29] MEDS: SERTRALINE HCL 100 MG TAB PO SCH (09:23)
[2016-08-29] MEDS: MULTIVITAMINS/MINERALS THERAPEUTIC TAB PO SCH (09:23)
[2016-08-29] MEDS: ASPIRIN 81 MG CHEW TAB PO SCH (09:23)
[2016-08-29] MEDS: QUEtiapine FUMARATE 25 MG TAB PO SCH ×3 (09:24→21:18)
[2016-08-29] MEDS: LACTULOSE SYRUP 20 GM/30 ML CUP PO SCH (09:24)
--- NOTE | 2016-08-29 10:16 | HHI.PYPN ---
Subjective Remarks Patient seen and case discussed with nursing staff. Per nursing staff, patient slept well and was medication compliant. For me today, patient is at his confused baseline. He sings to himself. He is noted in the day area to be trying to lift up a chair; unclear if he is preparing to throw it or is just trying to stack chair on another chair. He is redirected by staff. No evident side effects from medications. No physical complaints. Review of Systems ROS Limitations: Poor Historian Except as stated in HPI: all other systems reviewed are Neg Objective Alert: Yes [place]: Person Mood: Calm Affect: Blunted (tending to flat) Memory Intact: Comment (remains impaired on clinical exam) Hallucinations: Other (no AVH) Delusions: No Delusion Type: Other (No irina delusions) Suicidal: Ideation (no SI) Homicidal: Ideation (no HI) Insight/Judgment Poor Remarks No motor abnormalities noted. Speech rambling. TP somewhat disorganized. Labs Labs reviewed. No new labs. Vitals/IOs Vital Signs Date Time Temp Pulse Resp B/P Pulse Ox O2 Delivery O2 Flow Rate FiO2 08/29/16 06:00 98.8 77 18 152/89 97 Intake and Output 08/28/16 08/28/16 08/29/16 08:00 16:00 00:00 Intake Total 240 ml 720 ml Balance 240 ml 720 ml Assessment & Plan Problem List: (1) Schizophrenia Assessment & Plan: Suspect comorbid neurocognitive disorder ICD Code: F20.9 Assessment & Plan Titrate Seroquel to 50mg TID for management of behaviors in setting of schizophrenia/dementia. Continue other medications as ordered. Continue to monitor on the inpatient unit. Continue other care as ordered. Patient's case was presented to the [facility], and his case was placed in continuance for a period of 6 weeks. Justification for Cont. Inpt. Impairment in reality construction, I suspect as a consequence of dementia more so than schizophrenia. Medication changes in process. High risk for decompensation in a restrictive environment. Discharge Planning Placement once psychiatrically stabilized. Request HC Surrog/Guard Advoc?: Yes Problem Qualifiers (1) Schizophrenia: Qualified Code: F20.3 - Undifferentiated schizophrenia Cr Chanel MD August 29, 2016 10:16
[2016-08-29] MEDS: GABAPENTIN 100 MG CAP PO SCH ×2 (21:00→21:14)
[2016-08-29] MEDS: ATORVASTATIN 20 MG TAB PO SCH ×2 (21:00→21:14)
[2016-08-30] MEDS: diphenhydrAMINE HCL 50 MG/ML VIAL IM PRN (03:49)
[2016-08-30] MEDS: LORazepam 2 MG/ML VIAL - age > 65 yrs IM PRN (03:49)
[2016-08-30] MEDS: INSULIN ASPART SUPPLEMENTAL SCALE SQ SCH ×4 (06:22→21:00)
[2016-08-30 06:52] VITALS: BP 154/90; PULSE 63; RESP 18; TEMP 97.9; O2SAT 95
[2016-08-30] MEDS: BICALUTAMIDE 50 MG TAB PO SCH (08:25)
[2016-08-30] MEDS: ASPIRIN 81 MG CHEW TAB PO SCH (08:25)
[2016-08-30] MEDS: LACTULOSE SYRUP 20 GM/30 ML CUP PO SCH (08:25)
[2016-08-30] MEDS: SERTRALINE HCL 100 MG TAB PO SCH (08:25)
[2016-08-30] MEDS: CARBIDOPA/LEVODOPA 25 MG/100 MG TAB PO SCH ×3 (08:25→16:56)
[2016-08-30] MEDS: amLODIPine BESYLATE 5 MG TAB PO SCH (08:25)
[2016-08-30] MEDS: MULTIVITAMINS/MINERALS THERAPEUTIC TAB PO SCH (08:25)
[2016-08-30] MEDS: QUEtiapine FUMARATE 25 MG TAB PO SCH ×3 (08:25→21:00)
--- NOTE | 2016-08-30 10:52 | HHI.PYPN ---
Subjective Remarks Patient seen and examined. Chart reviewed. Case discussed with nursing staff who reports that the patient seems somewhat more confused today. He was apparently folding that sheet in the day area that was covering a chair and when the nurse offered to assist him he said "this is my job, woman!" I also not he required Ativan PRN overnight. For me today, patient is somewhat sedated. He is laying in his room, sleeping. He does awaken to loud voice and engages in a brief conversation. Oriented to person only. Besides the sedation , no evident side effects from medications. Review of Systems ROS Limitations: Poor Historian Except as stated in HPI: all other systems reviewed are Neg Objective Alert: Yes (somewhat sedated) [place]: Person Mood: Calm Affect: Flat Memory Intact: Comment (impaired) Hallucinations: Other (none) Delusions: No Delusion Type: Other (none) Suicidal: Ideation (no SI voiced) Homicidal: Ideation (no HI voiced) Insight/Judgment Poor Remarks No motor abnormalities noted. Labs Labs reviewed. Vitals/IOs Vital Signs Date Time Temp Pulse Resp B/P Pulse Ox O2 Delivery O2 Flow Rate FiO2 08/30/16 06:52 97.9 63 18 154/90 95 Intake and Output 08/29/16 08/29/16 08/30/16 08:00 16:00 00:00 Intake Total 240 ml 240 ml 600 ml Balance 240 ml 240 ml 600 ml Assessment & Plan Problem List: (1) Schizophrenia ICD Code: F20.9 (2) Dementia ICD Code: F03.90 Assessment & Plan Patient is a little sedated today. Worried this may be related to dose increase of Seroquel plus Ativan PRN overnight. I will drop Seroquel back to 37.5mg TID, which patient tolerated well. I will also check CBC, CMP, UA. Continue to monitor on inpatient unit. Continue other medications and care as ordered. Case signed out to Dr. Thompson, who will be covering this patient in my absence. Justification for Cont. Inpt. Complicating condition (sedation). Med changes in process. High risk for decompensation in a less restrictive environment. Discharge Planning Placement. Case d/w counselor. Request HC Surrog/Guard Advoc?: Yes Problem Qualifiers (1) Schizophrenia: Qualified Code: F20.3 - Undifferentiated schizophrenia (2) Dementia: Qualified Code: F03.91 - Dementia with behavioral disturbance, unspecified dementia type Cr Chanel MD August 30, 2016 10:52
[2016-08-30] MEDS: diphenhydrAMINE HCL 25 MG CAP PO PRN ×2 (13:24→22:20)
[2016-08-30] MEDS: HALOPERIDOL 1 MG TAB PO PRN (13:24)
[2016-08-30] MEDS: LORazepam 0.5 MG TAB age > 65 yrs PO PRN (13:24)
[2016-08-30 13:57] LABS: BASOPHIL % 0.6 % (0.0-2.0); EOSINOPHIL # 0.1 TH/MM3 (0-0.4); EOSINOPHIL % 2.3 % (0.0-4.0); HEMATOCRIT 33.6 % (39.0-51.0); HEMO FLAGS DIFF FINAL; LYMPH % 40.5 % (9.0-44.0); LYMPHOCYTE # 1.8 TH/MM3 (1.0-4.8); MEAN CELL VOLUME 89.1 FL (80.0-100.0); MEAN CORPUSCULAR HEMOGLOBIN 30.5 PG (27.0-34.0); MEAN CORPUSCULAR HGB CONC 34.2 % (32.0-36.0); MONO % 10.3 % (0.0-8.0); NEUT % 46.3 % (16.0-70.0); PLATELET COUNT 165 TH/MM3 (150-450); RED BLOOD COUNT 3.77 MIL/MM3 (4.50-5.90); RED CELL DISTRIBUTION WIDTH 12.9 % (11.6-17.2); WHITE BLOOD COUNT 4.3 TH/MM3 (4.0-11.0)
[2016-08-30 14:19] LABS: ANION GAP 6 MEQ/L (5-15); AST (GOT) 24 U/L (15-37); BICARBONATE 29.6 MEQ/L (21.0-32.0); BLOOD UREA NITROGEN 27 MG/DL (7-18); CHLORIDE 102 MEQ/L (98-107); GLOMERULAR FILTRATION RATE 55 ML/MIN (>89); POTASSIUM 4.1 MEQ/L (3.5-5.1); SODIUM (NA) 138 MEQ/L (136-145)
[2016-08-30 14:22] LABS: ALKALINE PHOSPHATASE 132 U/L (45-117); ALT (GPT) 8 U/L (12-78); TOTAL BILIRUBIN ADULT 0.5 MG/DL (0.2-1.0)
[2016-08-30 18:20] VITALS: BP 96/66; PULSE 69; RESP 17; TEMP 97.8
[2016-08-30] MEDS: GABAPENTIN 100 MG CAP PO SCH (20:59)
[2016-08-30] MEDS: ATORVASTATIN 20 MG TAB PO SCH (21:00)
[2016-08-30] MEDS: MELATONIN 5 MG TAB PO PRN (22:20)
[2016-08-31] MEDS: INSULIN ASPART SUPPLEMENTAL SCALE SQ SCH ×4 (06:01→21:00)
[2016-08-31 06:50] VITALS: BP 124/90; PULSE 58; RESP 17; TEMP 97.7
[2016-08-31] MEDS: ASPIRIN 81 MG CHEW TAB PO SCH (09:41)
[2016-08-31] MEDS: CARBIDOPA/LEVODOPA 25 MG/100 MG TAB PO SCH ×3 (09:41→18:31)
[2016-08-31 09:42] VITALS: BP 122/81; PULSE 70
[2016-08-31] MEDS: SERTRALINE HCL 100 MG TAB PO SCH (09:42)
[2016-08-31] MEDS: amLODIPine BESYLATE 5 MG TAB PO SCH (09:42)
[2016-08-31] MEDS: MULTIVITAMINS/MINERALS THERAPEUTIC TAB PO SCH (09:42)
[2016-08-31] MEDS: QUEtiapine FUMARATE 25 MG TAB PO SCH ×3 (09:42→21:38)
[2016-08-31] MEDS: LACTULOSE SYRUP 20 GM/30 ML CUP PO SCH (09:45)
[2016-08-31] MEDS: BICALUTAMIDE 50 MG TAB PO SCH (09:45)
--- NOTE | 2016-08-31 10:19 | HHI.PYPN ---
Subjective Remarks Patient seen and examined with nurse. Chart reviewed. Case discussed with nursing staff reports that the patient is pleasantly confused and no behavioral problem. On my examination today, the patient is considerably more awake and alert than yesterday. He remains quite confused. He is walking around the day area with a steady gait. I do note that he has a resting pill-rolling tremor; patient with known Parkinson's disease. No other motor abnormalities noted. No physical complaints. Review of Systems ROS Limitations: Poor Historian Except as stated in HPI: all other systems reviewed are Neg Objective Alert: Yes [place]: Person Mood: Calm Affect: Blunted Memory Intact: Comment (remains impaired) Hallucinations: Other (no AVH) Delusions: No Delusion Type: Other (no delusions) Suicidal: Ideation (no SI voiced) Homicidal: Ideation (no HI voiced) Insight/Judgment Poor Remarks Thought process somewhat disorganized consistent with dementia diagnosis Labs Test 08/30/16 13:42 White Blood Count 4.3 TH/MM3 Red Blood Count 3.77 MIL/MM3 Hemoglobin 11.5 GM/DL Hematocrit 33.6 % Mean Corpuscular Volume 89.1 FL Mean Corpuscular Hemoglobin 30.5 PG Mean Corpuscular Hemoglobin 34.2 % Concent Red Cell Distribution Width 12.9 % Platelet Count 165 TH/MM3 Mean Platelet Volume 8.8 FL Neutrophils (%) (Auto) 46.3 % Lymphocytes (%) (Auto) 40.5 % Monocytes (%) (Auto) 10.3 % Eosinophils (%) (Auto) 2.3 % Basophils (%) (Auto) 0.6 % Neutrophils # (Auto) 2.0 TH/MM3 Lymphocytes # (Auto) 1.8 TH/MM3 Monocytes # (Auto) 0.4 TH/MM3 Eosinophils # (Auto) 0.1 TH/MM3 Basophils # (Auto) 0.0 TH/MM3 CBC Comment DIFF FINAL Differential Comment Sodium Level 138 MEQ/L Potassium Level 4.1 MEQ/L Chloride Level 102 MEQ/L Carbon Dioxide Level 29.6 MEQ/L Anion Gap 6 MEQ/L Blood Urea Nitrogen 27 MG/DL Creatinine 1.51 MG/DL Estimat Glomerular Filtration 55 ML/MIN Rate Random Glucose 123 MG/DL Calcium Level 8.7 MG/DL Total Bilirubin 0.5 MG/DL Aspartate Amino Transf 24 U/L (AST/SGOT) Alanine Aminotransferase 8 U/L (ALT/SGPT) Alkaline Phosphatase 132 U/L Total Protein 7.8 GM/DL Albumin 4.0 GM/DL Labs reviewed. Anemia and GFR both stable. Vitals/IOs Vital Signs Date Time Temp Pulse Resp B/P Pulse Ox O2 Delivery O2 Flow Rate FiO2 08/31/16 09:42 70 122/81 08/31/16 06:50 97.7 17 08/30/16 06:52 95 Intake and Output 08/30/16 08/30/16 08/31/16 08:00 16:00 00:00 Intake Total 360 ml 0 ml 360 ml Balance 360 ml 0 ml 360 ml Assessment & Plan Problem List: (1) Schizophrenia ICD Code: F20.9 (2) Dementia ICD Code: F03.90 Assessment & Plan Continue current psychiatric medications as ordered. Continue to monitor on the inpatient unit. Fall precautions in place. Continue other medications and care as ordered. Justification for Cont. Inpt. High risk for decompensation in a less restrictive environment. Discharge Planning Placement Request HC Surrog/Guard Advoc?: Yes Problem Qualifiers (1) Schizophrenia: Qualified Code: F20.3 - Undifferentiated schizophrenia (2) Dementia: Qualified Code: F03.91 - Dementia with behavioral disturbance, unspecified dementia type Cr Chanel MD August 31, 2016 10:19
[2016-08-31] MEDS: HALOPERIDOL LACTATE 5 MG/ML AMP IM PRN (10:45)
[2016-08-31] MEDS: HALOPERIDOL 1 MG TAB PO PRN (18:31)
[2016-08-31 19:25] VITALS: BP 111/77; PULSE 78; TEMP 96.1; O2SAT 98
[2016-08-31] MEDS: ATORVASTATIN 20 MG TAB PO SCH (21:38)
[2016-08-31] MEDS: GABAPENTIN 100 MG CAP PO SCH (21:38)
[2016-09-01 05:49] VITALS: BP 133/83; PULSE 73; RESP 17; TEMP 98; O2SAT 98
[2016-09-01] MEDS: INSULIN ASPART SUPPLEMENTAL SCALE SQ SCH ×5 (06:10→20:43)
[2016-09-01] MEDS: amLODIPine BESYLATE 5 MG TAB PO SCH (08:32)
[2016-09-01] MEDS: MULTIVITAMINS/MINERALS THERAPEUTIC TAB PO SCH (08:32)
[2016-09-01] MEDS: QUEtiapine FUMARATE 25 MG TAB PO SCH ×3 (08:32→20:41)
[2016-09-01] MEDS: BICALUTAMIDE 50 MG TAB PO SCH (08:33)
[2016-09-01] MEDS: SERTRALINE HCL 100 MG TAB PO SCH (08:33)
[2016-09-01] MEDS: LACTULOSE SYRUP 20 GM/30 ML CUP PO SCH (08:33)
[2016-09-01] MEDS: ASPIRIN 81 MG CHEW TAB PO SCH (08:33)
[2016-09-01] MEDS: CARBIDOPA/LEVODOPA 25 MG/100 MG TAB PO SCH ×3 (08:33→17:28)
--- NOTE | 2016-09-01 13:09 | HHI.PYPN ---
Subjective Remarks Patient seen for psychiatric reevaluation. Patient is pleasantly confused, in good spirits, reports good mood. Patient has been compliant with medications, no significant side effects. He remains quite confused. He is walking around the day area with a steady gait. No episodic agitation, aggressive behavior, restlessness reported. Review of Systems Other No Somatic complaints Objective Alert: Yes [place]: Person Mood: Calm Affect: Blunted Memory Intact: Comment (remains impaired) Hallucinations: Other (no AVH) Delusions: No Delusion Type: Other (no delusions) Suicidal: Ideation (no SI voiced) Homicidal: Ideation (no HI voiced) Insight/Judgment fair Vitals/IOs Vital Signs Date Time Temp Pulse Resp B/P Pulse Ox O2 Delivery O2 Flow Rate FiO2 09/01/16 05:49 98.0 73 17 133/83 98 Intake and Output 08/31/16 08/31/16 09/01/16 08:00 16:00 00:00 Intake Total 480 ml 360 ml Balance 480 ml 360 ml Assessment & Plan Problem List: (1) Schizophrenia ICD Code: F20.9 (2) Dementia ICD Code: F03.90 Assessment & Plan Estimated LOS: days Justification for Cont. Inpt. Patient poses an elevated risk to decompensate out on a structure environment Request HC Surrog/Guard Advoc?: Yes Problem Qualifiers (1) Schizophrenia: Qualified Code: F20.3 - Undifferentiated schizophrenia (2) Dementia: Qualified Code: F03.91 - Dementia with behavioral disturbance, unspecified dementia type Paulo White MD September 01, 2016 13:09
[2016-09-01] MEDS: ATORVASTATIN 20 MG TAB PO SCH (20:41)
[2016-09-01] MEDS: GABAPENTIN 100 MG CAP PO SCH (20:41)
[2016-09-01 20:49] VITALS: BP 119/71; PULSE 69; RESP 17; TEMP 98.1; O2SAT 99
[2016-09-02] MEDS: diphenhydrAMINE HCL 25 MG CAP PO PRN (01:08)
[2016-09-02] MEDS: LORazepam 0.5 MG TAB age > 65 yrs PO PRN ×2 (01:08→14:15)
[2016-09-02 05:35] VITALS: BP 138/67; PULSE 76; RESP 18; TEMP 98
[2016-09-02] MEDS: INSULIN ASPART SUPPLEMENTAL SCALE SQ SCH ×4 (05:58→20:48)
[2016-09-02] MEDS: CARBIDOPA/LEVODOPA 25 MG/100 MG TAB PO SCH ×3 (08:43→17:52)
[2016-09-02] MEDS: amLODIPine BESYLATE 5 MG TAB PO SCH (08:43)
[2016-09-02] MEDS: LACTULOSE SYRUP 20 GM/30 ML CUP PO SCH (08:44)
[2016-09-02] MEDS: MULTIVITAMINS/MINERALS THERAPEUTIC TAB PO SCH (08:44)
[2016-09-02] MEDS: SERTRALINE HCL 100 MG TAB PO SCH (08:44)
[2016-09-02] MEDS: BICALUTAMIDE 50 MG TAB PO SCH (08:44)
[2016-09-02] MEDS: QUEtiapine FUMARATE 25 MG TAB PO SCH ×3 (08:44→20:45)
[2016-09-02] MEDS: ASPIRIN 81 MG CHEW TAB PO SCH (08:48)
--- NOTE | 2016-09-02 16:21 | HHI.PYPN ---
Subjective Remarks Patient seen in [place] with nurse Marco Antonio, patient remains confused but also continues intrusive somewhat irritable needing redirection. Will increase scheduled Seroquel to 50 mg 3 times a day. Patient did need when necessary Ativan earlier today Review of Systems Except as stated in HPI: all other systems reviewed are Neg Objective Alert: Yes [place]: Person Mood: Calm Affect: Blunted Memory Intact: Comment (remains impaired) Hallucinations: Other (no AVH) Delusions: No Delusion Type: Other (no delusions) Suicidal: Ideation (no SI voiced) Homicidal: Ideation (no HI voiced) Insight/Judgment Very poor Vitals/IOs Vital Signs Date Time Temp Pulse Resp B/P Pulse Ox O2 Delivery O2 Flow Rate FiO2 09/02/16 05:35 98.0 76 18 138/67 09/01/16 20:49 99 Intake and Output 09/01/16 09/01/16 09/02/16 08:00 16:00 00:00 Intake Total 0 ml 560 ml 480 ml Balance 0 ml 560 ml 480 ml Assessment & Plan Problem List: (1) Schizophrenia ICD Code: F20.9 (2) Dementia ICD Code: F03.90 Assessment & Plan Estimated LOS: days patient continues confused and psychotic, compliant medications, see medication adjustment above Justification for Cont. Inpt. At this time patient will decompensate the placed in a lower level of care Discharge Planning To be determined Request HC Surrog/Guard Advoc?: Yes Problem Qualifiers (1) Schizophrenia: Qualified Code: F20.3 - Undifferentiated schizophrenia (2) Dementia: Qualified Code: F03.91 - Dementia with behavioral disturbance, unspecified dementia type Loyd Thompson MD September 02, 2016 16:21
[2016-09-02 19:51] VITALS: BP 107/57; PULSE 80; RESP 18; TEMP 98
[2016-09-02] MEDS: ATORVASTATIN 20 MG TAB PO SCH (20:45)
[2016-09-02] MEDS: GABAPENTIN 100 MG CAP PO SCH (20:45)
[2016-09-02] MEDS: LORazepam 2 MG/ML VIAL - age > 65 yrs IM PRN (22:07)
[2016-09-02] MEDS: HALOPERIDOL LACTATE 5 MG/ML AMP IM PRN (22:08)
[2016-09-02] MEDS: diphenhydrAMINE HCL 50 MG/ML VIAL IM PRN (22:12)
[2016-09-03 05:20] VITALS: BP 148/77; PULSE 82; RESP 16; TEMP 97.7
[2016-09-03] MEDS: INSULIN ASPART SUPPLEMENTAL SCALE SQ SCH ×4 (06:36→21:00)
[2016-09-03] MEDS: ASPIRIN 81 MG CHEW TAB PO SCH (08:56)
[2016-09-03] MEDS: CARBIDOPA/LEVODOPA 25 MG/100 MG TAB PO SCH ×3 (08:56→16:55)
[2016-09-03] MEDS: BICALUTAMIDE 50 MG TAB PO SCH (08:56)
[2016-09-03] MEDS: LACTULOSE SYRUP 20 GM/30 ML CUP PO SCH (08:56)
[2016-09-03] MEDS: amLODIPine BESYLATE 5 MG TAB PO SCH (08:56)
[2016-09-03] MEDS: MULTIVITAMINS/MINERALS THERAPEUTIC TAB PO SCH (08:56)
[2016-09-03] MEDS: QUEtiapine FUMARATE 25 MG TAB PO SCH ×3 (08:57→21:00)
[2016-09-03] MEDS: SERTRALINE HCL 100 MG TAB PO SCH (08:57)
--- NOTE | 2016-09-03 13:11 | HHI.PYPN ---
Subjective Remarks Patient seen in dayroom with floor staff, reviewed. Patient compliant medications. Patient continues to wander at times somewhat intrusive but less intensity in affect. Continues disorganized confused all 4 spheres Review of Systems Except as stated in HPI: all other systems reviewed are Neg Objective Alert: Yes [place]: Person Mood: Calm Affect: Blunted Memory Intact: Comment (remains impaired) Hallucinations: Other (no AVH) Delusions: No Delusion Type: Other (no delusions) Suicidal: Ideation (no SI voiced) Homicidal: Ideation (no HI voiced) Insight/Judgment Very poor Vitals/IOs Vital Signs Date Time Temp Pulse Resp B/P Pulse Ox O2 Delivery O2 Flow Rate FiO2 09/03/16 05:20 97.7 82 16 148/77 09/01/16 20:49 99 Intake and Output 09/02/16 09/02/16 09/03/16 08:00 16:00 00:00 Intake Total 360 ml 240 ml Balance 360 ml 240 ml Assessment & Plan Problem List: (1) Schizophrenia ICD Code: F20.9 (2) Dementia ICD Code: F03.90 Assessment & Plan Estimated LOS: days patient continues demented confused wandering at times somewhat intrusive compliant medication Justification for Cont. Inpt. At this time patient will decompensate if placed in a lower level of care Discharge Planning To be determined Request HC Surrog/Guard Advoc?: Yes Problem Qualifiers (1) Schizophrenia: Qualified Code: F20.3 - Undifferentiated schizophrenia (2) Dementia: Qualified Code: F03.91 - Dementia with behavioral disturbance, unspecified dementia type Loyd Thompson MD September 03, 2016 13:11
[2016-09-03 13:17] VITALS: BP 106/65; PULSE 64; RESP 18; TEMP 96.6; O2SAT 98
[2016-09-03 13:45] VITALS: BP 109/64; PULSE 64
[2016-09-03 15:06] VITALS: BP 110/72; PULSE 68; RESP 16
[2016-09-03] MEDS: HALOPERIDOL LACTATE 5 MG/ML AMP IM PRN (18:41)
[2016-09-03] MEDS: LORazepam 2 MG/ML VIAL - age > 65 yrs IM PRN (18:41)
[2016-09-03] MEDS: diphenhydrAMINE HCL 50 MG/ML VIAL IM PRN (18:41)
[2016-09-03 19:43] VITALS: BP 122/70; PULSE 61; RESP 16; TEMP 96.6; O2SAT 98
[2016-09-03] MEDS: ATORVASTATIN 20 MG TAB PO SCH (21:00)
[2016-09-03] MEDS: GABAPENTIN 100 MG CAP PO SCH (21:00)
[2016-09-03 23:30] VITALS: BP 149/83; PULSE 68; RESP 20; TEMP 97.8; O2SAT 95
[2016-09-04 03:31] VITALS: BP 131/72; PULSE 49; TEMP 98.5; O2SAT 97
[2016-09-04 04:03] VITALS: BP 118/66; PULSE 54
[2016-09-04 05:45] VITALS: BP 118/66; PULSE 54; RESP 16; TEMP 98.3; O2SAT 100
[2016-09-04] MEDS: INSULIN ASPART SUPPLEMENTAL SCALE SQ SCH ×4 (06:41→21:00)
[2016-09-04] MEDS: CARBIDOPA/LEVODOPA 25 MG/100 MG TAB PO SCH ×3 (09:35→17:04)
[2016-09-04] MEDS: ASPIRIN 81 MG CHEW TAB PO SCH (09:35)
[2016-09-04] MEDS: QUEtiapine FUMARATE 25 MG TAB PO SCH ×3 (09:35→21:19)
[2016-09-04] MEDS: BICALUTAMIDE 50 MG TAB PO SCH (09:35)
[2016-09-04] MEDS: SERTRALINE HCL 100 MG TAB PO SCH (09:36)
[2016-09-04] MEDS: amLODIPine BESYLATE 5 MG TAB PO SCH (09:36)
[2016-09-04] MEDS: LACTULOSE SYRUP 20 GM/30 ML CUP PO SCH (09:36)
[2016-09-04] MEDS: MULTIVITAMINS/MINERALS THERAPEUTIC TAB PO SCH (09:36)
--- NOTE | 2016-09-04 10:38 | HHI.PYPN ---
Subjective Remarks Patient seen in day room with floor staff, chart reviewed. Patient continues to wander from some mild paranoia and intrusiveness was able to be redirected without significant problems. Compliant medications. For now continue treatment Review of Systems Except as stated in HPI: all other systems reviewed are Neg Objective Alert: Yes [place]: Person Mood: Calm Affect: Blunted Memory Intact: Comment (remains impaired) Hallucinations: Other (no AVH) Delusions: No Delusion Type: Other (no delusions) Suicidal: Ideation (no SI voiced) Homicidal: Ideation (no HI voiced) Insight/Judgment Very poor Vitals/IOs Vital Signs Date Time Temp Pulse Resp B/P Pulse Ox O2 Delivery O2 Flow Rate FiO2 09/04/16 05:45 98.3 54 16 118/66 100 Intake and Output 09/03/16 09/03/16 09/04/16 08:00 16:00 00:00 Intake Total 720 ml Balance 720 ml Assessment & Plan Problem List: (1) Schizophrenia ICD Code: F20.9 (2) Dementia ICD Code: F03.90 Assessment & Plan Patient continues confused and wandering somewhat vigilant and irritable at times though redirectable Estimated LOS: days Justification for Cont. Inpt. This time patient will decompensate the placed in a lower level of care Discharge Planning To be determined Request HC Surrog/Guard Advoc?: Yes Problem Qualifiers (1) Schizophrenia: Qualified Code: F20.3 - Undifferentiated schizophrenia (2) Dementia: Qualified Code: F03.91 - Dementia with behavioral disturbance, unspecified dementia type Loyd Thompson MD September 04, 2016 10:38
[2016-09-04 14:00] VITALS: BP 102/63; PULSE 68; RESP 17; TEMP 98.3; O2SAT 96
[2016-09-04 16:00] VITALS: BP 112/65; PULSE 73; RESP 17; TEMP 96.9; O2SAT 97
[2016-09-04] MEDS: HALOPERIDOL LACTATE 5 MG/ML AMP IM PRN (18:45)
[2016-09-04] MEDS: diphenhydrAMINE HCL 50 MG/ML VIAL IM PRN (18:45)
[2016-09-04] MEDS: GABAPENTIN 100 MG CAP PO SCH (21:19)
[2016-09-04] MEDS: ATORVASTATIN 20 MG TAB PO SCH (21:19)
[2016-09-05 06:39] VITALS: BP 128/83; PULSE 67; RESP 18; TEMP 97.8; O2SAT 100
[2016-09-05] MEDS: INSULIN ASPART SUPPLEMENTAL SCALE SQ SCH ×4 (07:00→21:00)
[2016-09-05] MEDS: amLODIPine BESYLATE 5 MG TAB PO SCH (10:03)
[2016-09-05] MEDS: CARBIDOPA/LEVODOPA 25 MG/100 MG TAB PO SCH ×3 (10:03→17:33)
[2016-09-05] MEDS: SERTRALINE HCL 100 MG TAB PO SCH (10:03)
[2016-09-05] MEDS: MULTIVITAMINS/MINERALS THERAPEUTIC TAB PO SCH (10:03)
[2016-09-05] MEDS: BICALUTAMIDE 50 MG TAB PO SCH (10:03)
[2016-09-05] MEDS: QUEtiapine FUMARATE 25 MG TAB PO SCH ×3 (10:04→20:26)
[2016-09-05] MEDS: LACTULOSE SYRUP 20 GM/30 ML CUP PO SCH (10:04)
[2016-09-05] MEDS: ASPIRIN 81 MG CHEW TAB PO SCH (10:04)
--- NOTE | 2016-09-05 12:40 | HHI.PYPN ---
Subjective Remarks Patient seen in dayroom with floor staff, patient is intrusive somewhat irritable needing redirection. Compliant medications. He continues confused and demented. For now continue treatment Review of Systems Except as stated in HPI: all other systems reviewed are Neg Objective Alert: Yes [place]: Person Mood: Calm Affect: Blunted Memory Intact: Comment (remains impaired) Hallucinations: Other (no AVH) Delusions: No Delusion Type: Other (no delusions) Suicidal: Ideation (no SI voiced) Homicidal: Ideation (no HI voiced) Insight/Judgment Very poor Vitals/IOs Vital Signs Date Time Temp Pulse Resp B/P Pulse Ox O2 Delivery O2 Flow Rate FiO2 09/05/16 06:39 97.8 67 18 128/83 100 Intake and Output 09/04/16 09/04/16 09/05/16 08:00 16:00 00:00 Intake Total 360 ml Balance 360 ml Assessment & Plan Problem List: (1) Schizophrenia ICD Code: F20.9 (2) Dementia ICD Code: F03.90 Assessment & Plan Estimated LOS: days patient continues demented and confused, somewhat intrusive needing significant redirections, compliant medications Justification for Cont. Inpt. At this time patient will decompensate if placed in a lower level of care Discharge Planning To be determined Request HC Surrog/Guard Advoc?: Yes Problem Qualifiers (1) Schizophrenia: Qualified Code: F20.3 - Undifferentiated schizophrenia (2) Dementia: Qualified Code: F03.91 - Dementia with behavioral disturbance, unspecified dementia type Loyd Thompson MD September 05, 2016 12:40
[2016-09-05 17:59] VITALS: BP 92/53; PULSE 80; RESP 18; TEMP 97.7; O2SAT 91
[2016-09-05] MEDS: GABAPENTIN 100 MG CAP PO SCH (20:26)
[2016-09-05] MEDS: ATORVASTATIN 20 MG TAB PO SCH (20:26)
[2016-09-05] MEDS: LORazepam 0.5 MG TAB age > 65 yrs PO PRN (21:50)
[2016-09-06 05:55] VITALS: BP 122/70; PULSE 91; RESP 16; TEMP 96.6; O2SAT 97
[2016-09-06] MEDS: INSULIN ASPART SUPPLEMENTAL SCALE SQ SCH ×4 (06:50→21:00)
[2016-09-06] MEDS: ASPIRIN 81 MG CHEW TAB PO SCH (09:51)
[2016-09-06] MEDS: amLODIPine BESYLATE 5 MG TAB PO SCH (09:51)
[2016-09-06] MEDS: BICALUTAMIDE 50 MG TAB PO SCH (09:51)
[2016-09-06] MEDS: CARBIDOPA/LEVODOPA 25 MG/100 MG TAB PO SCH ×3 (09:52→17:41)
[2016-09-06] MEDS: SERTRALINE HCL 100 MG TAB PO SCH (09:52)
[2016-09-06] MEDS: LACTULOSE SYRUP 20 GM/30 ML CUP PO SCH (09:52)
[2016-09-06] MEDS: MULTIVITAMINS/MINERALS THERAPEUTIC TAB PO SCH (09:52)
[2016-09-06] MEDS: QUEtiapine FUMARATE 25 MG TAB PO SCH ×3 (09:52→21:00)
--- NOTE | 2016-09-06 10:36 | HHI.PYPN ---
Subjective Remarks Patient seen in day room with orders have, continue somewhat intrusive but redirectable. Continues confused demented. Compliant medications Review of Systems Except as stated in HPI: all other systems reviewed are Neg Objective Alert: Yes [place]: Person Mood: Calm Affect: Blunted Memory Intact: Comment (remains impaired) Hallucinations: Other (no AVH) Delusions: No Delusion Type: Other (no delusions) Suicidal: Ideation (no SI voiced) Homicidal: Ideation (no HI voiced) Insight/Judgment Very poor Vitals/IOs Vital Signs Date Time Temp Pulse Resp B/P Pulse Ox O2 Delivery O2 Flow Rate FiO2 09/06/16 05:55 96.6 91 16 122/70 97 Intake and Output 09/05/16 09/05/16 09/06/16 08:00 16:00 00:00 Intake Total 240 ml 720 ml 2640 ml Balance 240 ml 720 ml 2640 ml Assessment & Plan Problem List: (1) Schizophrenia ICD Code: F20.9 (2) Dementia ICD Code: F03.90 Assessment & Plan Estimated LOS: days patient continues confused wandering needing redirection, compliant medication Justification for Cont. Inpt. With this time patient will decompensate if placed in a lower level of care Discharge Planning To be determined Request HC Surrog/Guard Advoc?: Yes Problem Qualifiers (1) Schizophrenia: Qualified Code: F20.3 - Undifferentiated schizophrenia (2) Dementia: Qualified Code: F03.91 - Dementia with behavioral disturbance, unspecified dementia type Loyd Thompson MD September 06, 2016 10:36
[2016-09-06] MEDS: HALOPERIDOL LACTATE 5 MG/ML AMP IM PRN (12:42)
[2016-09-06] MEDS: diphenhydrAMINE HCL 50 MG/ML VIAL IM PRN (13:01)
[2016-09-06 17:41] VITALS: BP 112/76; PULSE 98; RESP 16; TEMP 96.7; O2SAT 99
[2016-09-06] MEDS: GABAPENTIN 100 MG CAP PO SCH (21:00)
[2016-09-06] MEDS: ATORVASTATIN 20 MG TAB PO SCH (21:00)
[2016-09-07 06:27] VITALS: BP 132/80; PULSE 68; RESP 17; TEMP 97.9; O2SAT 100
[2016-09-07] MEDS: INSULIN ASPART SUPPLEMENTAL SCALE SQ SCH ×4 (06:39→20:21)
[2016-09-07] MEDS: MULTIVITAMINS/MINERALS THERAPEUTIC TAB PO SCH (08:43)
[2016-09-07] MEDS: SERTRALINE HCL 100 MG TAB PO SCH (08:43)
[2016-09-07] MEDS: CARBIDOPA/LEVODOPA 25 MG/100 MG TAB PO SCH ×3 (08:43→16:29)
[2016-09-07] MEDS: ASPIRIN 81 MG CHEW TAB PO SCH (08:43)
[2016-09-07] MEDS: amLODIPine BESYLATE 5 MG TAB PO SCH (08:43)
[2016-09-07] MEDS: LACTULOSE SYRUP 20 GM/30 ML CUP PO SCH (08:43)
[2016-09-07] MEDS: QUEtiapine FUMARATE 25 MG TAB PO SCH ×3 (08:43→20:34)
[2016-09-07] MEDS: BICALUTAMIDE 50 MG TAB PO SCH (08:43)
[2016-09-07] MEDS: LORazepam 0.5 MG TAB age > 65 yrs PO PRN ×2 (09:01→20:33)
--- NOTE | 2016-09-07 11:54 | HHI.PYPN ---
Subjective Remarks Patient was seen and case discussed with nursing. Per nursing patient was aggressive at agitation yesterday. He appears to have gotten overly stimulated from all visitors that he received. Today's alert and oriented 2. He is talkative but it is rather rambling nature and difficult to understand. Remains internally stimulated. Compliant with medications Objective Alert: Yes [place]: Person Mood: Anxious Affect: Restricted Memory Intact: Comment (remains impaired) Hallucinations: Other (no AVH) Delusions: No Delusion Type: Other (internally stimulated) Suicidal: Ideation (no SI voiced) Homicidal: Ideation (no HI voiced) Insight/Judgment Poor Vitals/IOs Vital Signs Date Time Temp Pulse Resp B/P Pulse Ox O2 Delivery O2 Flow Rate FiO2 09/07/16 06:27 97.9 68 17 132/80 100 Intake and Output 09/06/16 09/06/16 09/07/16 08:00 16:00 00:00 Intake Total 360 ml 720 ml 240 ml Balance 360 ml 720 ml 240 ml Assessment & Plan Problem List: (1) Schizophrenia ICD Code: F20.9 (2) Dementia ICD Code: F03.90 Assessment & Plan Continue current treatment plan Justification for Cont. Inpt. Patient will decompensate in a less restrictive setting Request HC Surrog/Guard Advoc?: Yes Problem Qualifiers (1) Schizophrenia: Qualified Code: F20.3 - Undifferentiated schizophrenia (2) Dementia: Qualified Code: F03.91 - Dementia with behavioral disturbance, unspecified dementia type Claudio Garzon DO September 07, 2016 11:54
[2016-09-07] MEDS: LORazepam 2 MG/ML VIAL - age > 65 yrs IM PRN (13:05)
[2016-09-07] MEDS: diphenhydrAMINE HCL 50 MG/ML VIAL IM PRN (14:27)
[2016-09-07] MEDS: HALOPERIDOL LACTATE 5 MG/ML AMP IM PRN (14:27)
[2016-09-07 18:00] VITALS: BP 133/70; PULSE 60; TEMP 96.4; O2SAT 100
[2016-09-07] MEDS: GABAPENTIN 100 MG CAP PO SCH (20:34)
[2016-09-07] MEDS: ACETAMINOPHEN 325 MG TAB PO PRN (20:34)
[2016-09-07] MEDS: ATORVASTATIN 20 MG TAB PO SCH (20:34)
[2016-09-08 05:59] VITALS: BP 141/88; PULSE 50; RESP 18; TEMP 97.4; O2SAT 98
[2016-09-08] MEDS: INSULIN ASPART SUPPLEMENTAL SCALE SQ SCH ×4 (06:43→21:00)
[2016-09-08] MEDS: QUEtiapine FUMARATE 25 MG TAB PO SCH ×3 (08:54→20:51)
[2016-09-08] MEDS: CARBIDOPA/LEVODOPA 25 MG/100 MG TAB PO SCH ×3 (08:54→17:40)
[2016-09-08] MEDS: MULTIVITAMINS/MINERALS THERAPEUTIC TAB PO SCH (08:54)
[2016-09-08] MEDS: ASPIRIN 81 MG CHEW TAB PO SCH (08:54)
[2016-09-08] MEDS: amLODIPine BESYLATE 5 MG TAB PO SCH (08:54)
[2016-09-08] MEDS: BICALUTAMIDE 50 MG TAB PO SCH (08:54)
[2016-09-08] MEDS: SERTRALINE HCL 100 MG TAB PO SCH (08:54)
[2016-09-08] MEDS: LACTULOSE SYRUP 20 GM/30 ML CUP PO SCH (08:55)
[2016-09-08] MEDS: LORazepam 0.5 MG TAB age > 65 yrs PO PRN (08:56)
--- NOTE | 2016-09-08 12:11 | HHI.PYPN ---
Subjective Remarks Patient was seen and case discussed with nursing. Per nursing patient has been labile and disorganized last evening. Is grabbing for things, intrusive and jumping on chairs. Today his behavior has improved. He is eating calmly. Remains internally preoccupied and is largely nonsensical with flight of ideas during his conversations Objective Alert: Yes [place]: Person Mood: Anxious Affect: Labile Memory Intact: Comment (remains impaired) Hallucinations: Other (no AVH) Delusions: No Delusion Type: Other (internally stimulated) Suicidal: Ideation (no SI voiced) Homicidal: Ideation (no HI voiced) Insight/Judgment Poor Vitals/IOs Vital Signs Date Time Temp Pulse Resp B/P Pulse Ox O2 Delivery O2 Flow Rate FiO2 09/08/16 05:59 97.4 50 18 141/88 98 Intake and Output 09/07/16 09/07/16 09/08/16 08:00 16:00 00:00 Intake Total 600 ml 240 ml Balance 600 ml 240 ml Assessment & Plan Problem List: (1) Schizophrenia ICD Code: F20.9 (2) Dementia ICD Code: F03.90 Assessment & Plan Continue current treatment plan Justification for Cont. Inpt. Patient will decompensate in a less restrictive setting Request HC Surrog/Guard Advoc?: Yes Problem Qualifiers (1) Schizophrenia: Qualified Code: F20.3 - Undifferentiated schizophrenia (2) Dementia: Qualified Code: F03.91 - Dementia with behavioral disturbance, unspecified dementia type Claudio Garzon DO September 08, 2016 12:11
[2016-09-08] MEDS: LORazepam 2 MG/ML VIAL - age > 65 yrs IM PRN ×2 (14:39→18:10)
[2016-09-08 20:13] VITALS: BP 131/75; PULSE 63; RESP 18; TEMP 96.8; O2SAT 96
[2016-09-08 20:42] VITALS: BP 141/90; PULSE 65; RESP 20; TEMP 97.8; O2SAT 100
[2016-09-08] MEDS: GABAPENTIN 100 MG CAP PO SCH (20:51)
[2016-09-08] MEDS: ATORVASTATIN 20 MG TAB PO SCH (20:51)
[2016-09-08 21:40] VITALS: BP 132/87; PULSE 62; RESP 18; TEMP 97.6; O2SAT 97
[2016-09-09 00:35] VITALS: BP 167/99; PULSE 61; RESP 20; TEMP 98.3; O2SAT 96
[2016-09-09 04:38] VITALS: BP 151/93; PULSE 54; RESP 18; TEMP 98.2; O2SAT 98
[2016-09-09] MEDS: INSULIN ASPART SUPPLEMENTAL SCALE SQ SCH ×4 (06:30→22:00)
[2016-09-09 06:44] VITALS: BP 151/92; PULSE 56; RESP 18; TEMP 98.2; O2SAT 99
--- NOTE | 2016-09-09 08:50 | RADRPT ---
EXAM DATE/TIME: 09/09/2016 08:32 [facility] COMPARISON: CT BRAIN W/O CONTRAST, August 20, 2016, 14:08. INDICATIONS : Patient fell and had trauma anterior RT orbit area. RADIATION DOSE: 52.41 CTDIvol (mGy) MEDICAL HISTORY : Cardiovascular disease. Hypertension. Parkinsons.Schizophrenia SURGICAL HISTORY : None. ENCOUNTER: Subsequent ACUITY: 1 day PAIN SCALE: 2/10 LOCATION: Right anterior head TECHNIQUE: Multiple contiguous axial images were obtained of the head. Using automated exposure control and adj ustment of the mA and/or kV according to patient size, radiation dose was kept as low as reasonably a chievable to obtain optimal diagnostic quality images. FINDINGS: CEREBRUM: The ventricles are normal for age. No evidence of midline shift, mass lesion, hemorrhage or acute in farction. No extra-axial fluid collections are seen. POSTERIOR FOSSA: The cerebellum and brainstem are intact. The 4th ventricle is midline. The cerebellopontine angle i s unremarkable. EXTRACRANIAL: The visualized portion of the orbits is intact. SKULL: Cephalhematoma over the right frontal bone extending down to the nasal bridge. The calvaria is intact . No evidence of skull fracture. CONCLUSION: 1. Cephalhematoma over the right frontal bone/supraorbital region extending down to the nasal bridge. No associated fracture. 2. Otherwise negative. No acute intracranial process or trauma. Geovanny Minor MD on September 09, 2016 at 8:46 Board Certified Radiologist. This report was verified electronically.
[2016-09-09] MEDS: BICALUTAMIDE 50 MG TAB PO SCH (10:24)
[2016-09-09] MEDS: SERTRALINE HCL 100 MG TAB PO SCH (10:24)
[2016-09-09] MEDS: MULTIVITAMINS/MINERALS THERAPEUTIC TAB PO SCH (10:24)
[2016-09-09] MEDS: CARBIDOPA/LEVODOPA 25 MG/100 MG TAB PO SCH ×3 (10:24→17:21)
[2016-09-09] MEDS: ASPIRIN 81 MG CHEW TAB PO SCH (10:25)
[2016-09-09] MEDS: LACTULOSE SYRUP 20 GM/30 ML CUP PO SCH (10:25)
[2016-09-09] MEDS: QUEtiapine FUMARATE 25 MG TAB PO SCH ×3 (10:25→21:57)
[2016-09-09] MEDS: amLODIPine BESYLATE 5 MG TAB PO SCH (10:25)
--- NOTE | 2016-09-09 12:55 | HHI.PYPN ---
Subjective Remarks Patient seen in day room with nurse [place], chart reviewed. Patient continues to wander at times somewhat irritable but redirectable remains markedly confused and disoriented. Did fall earlier today CT of the head was negative except for soft tissue bruising. Review of Systems Except as stated in HPI: all other systems reviewed are Neg Objective Alert: Yes [place]: Person Mood: Anxious Affect: Labile Memory Intact: Comment (remains impaired) Hallucinations: Other (no AVH) Delusions: No Delusion Type: Other (internally stimulated) Suicidal: Ideation (no SI voiced) Homicidal: Ideation (no HI voiced) Insight/Judgment Very poor Vitals/IOs Vital Signs Date Time Temp Pulse Resp B/P Pulse Ox O2 Delivery O2 Flow Rate FiO2 09/09/16 06:44 98.2 56 18 151/92 99 Intake and Output 09/08/16 09/08/16 09/08/16 07:59 15:59 23:59 Intake Total 0 ml 840 ml 480 ml Balance 0 ml 840 ml 480 ml Assessment & Plan Problem List: (1) Schizophrenia ICD Code: F20.9 (2) Dementia ICD Code: F03.90 Assessment & Plan Estimated LOS: days patient continues confused demented, continues wandering at times needing redirection Justification for Cont. Inpt. At this time patient will decompensate and placed a lower level of care Discharge Planning To be determined Request HC Surrog/Guard Advoc?: Yes Problem Qualifiers (1) Schizophrenia: Qualified Code: F20.3 - Undifferentiated schizophrenia (2) Dementia: Qualified Code: F03.91 - Dementia with behavioral disturbance, unspecified dementia type Loyd Thompson MD September 09, 2016 12:55
[2016-09-09] MEDS: HALOPERIDOL 1 MG TAB PO PRN (15:44)
[2016-09-09 16:05] VITALS: BP 130/80; PULSE 69; RESP 18; TEMP 97.9; O2SAT 97
[2016-09-09 17:00] VITALS: BP 130/80; PULSE 69; RESP 18; TEMP 97.4
[2016-09-09] MEDS: ATORVASTATIN 20 MG TAB PO SCH (21:57)
[2016-09-09] MEDS: GABAPENTIN 100 MG CAP PO SCH (21:57)
[2016-09-10] MEDS: INSULIN ASPART SUPPLEMENTAL SCALE SQ SCH ×4 (05:39→21:00)
[2016-09-10 06:00] VITALS: BP 146/85; PULSE 52; RESP 18; TEMP 98.2; O2SAT 97
[2016-09-10] MEDS: ASPIRIN 81 MG CHEW TAB PO SCH (09:00)
[2016-09-10] MEDS: MULTIVITAMINS/MINERALS THERAPEUTIC TAB PO SCH (09:00)
[2016-09-10] MEDS: CARBIDOPA/LEVODOPA 25 MG/100 MG TAB PO SCH ×4 (09:00→22:01)
[2016-09-10] MEDS: BICALUTAMIDE 50 MG TAB PO SCH (09:00)
[2016-09-10] MEDS: QUEtiapine FUMARATE 25 MG TAB PO SCH ×3 (09:58→22:01)
[2016-09-10] MEDS: SERTRALINE HCL 100 MG TAB PO SCH (09:58)
[2016-09-10] MEDS: amLODIPine BESYLATE 5 MG TAB PO SCH (09:58)
[2016-09-10] MEDS: LACTULOSE SYRUP 20 GM/30 ML CUP PO SCH (09:58)
--- NOTE | 2016-09-10 16:23 | HHI.PYPN ---
Subjective Remarks Patient seen in day room with nurse Marco Antonio, chart reviewed, patient continues to wander at times somewhat intrusive markedly disorganized with flavor of lability. Patient compliant medication Review of Systems Except as stated in HPI: all other systems reviewed are Neg Objective Alert: Yes [place]: Person Mood: Anxious Affect: Labile Memory Intact: Comment (remains impaired) Hallucinations: Other (no AVH) Delusions: No Delusion Type: Other (internally stimulated) Suicidal: Ideation (no SI voiced) Homicidal: Ideation (no HI voiced) Insight/Judgment Very poor Vitals/IOs Vital Signs Date Time Temp Pulse Resp B/P Pulse Ox O2 Delivery O2 Flow Rate FiO2 09/10/16 06:00 98.2 52 18 146/85 97 Intake and Output 09/09/16 09/09/16 09/09/16 07:59 15:59 23:59 Intake Total 840 ml 660 ml Balance 840 ml 660 ml Assessment & Plan Problem List: (1) Schizophrenia ICD Code: F20.9 (2) Dementia ICD Code: F03.90 Assessment & Plan Estimated LOS: days patient continues confused somewhat delusional, and demented. Compliant medication. For now continue treatment Justification for Cont. Inpt. At this time patient will decompensate the placed in a lower level of care Discharge Planning To be determined Request HC Surrog/Guard Advoc?: Yes Problem Qualifiers (1) Schizophrenia: Qualified Code: F20.3 - Undifferentiated schizophrenia (2) Dementia: Qualified Code: F03.91 - Dementia with behavioral disturbance, unspecified dementia type Loyd Thompson MD September 10, 2016 16:23
[2016-09-10 18:24] VITALS: BP 118/84; PULSE 72; RESP 18; TEMP 97.5
[2016-09-10] MEDS: GABAPENTIN 100 MG CAP PO SCH (21:00)
[2016-09-10] MEDS: ATORVASTATIN 20 MG TAB PO SCH (22:00)
[2016-09-11 05:55] VITALS: BP 145/91; PULSE 84; RESP 18; TEMP 97.8; O2SAT 92
[2016-09-11] MEDS: INSULIN ASPART SUPPLEMENTAL SCALE SQ SCH ×4 (06:00→21:00)
[2016-09-11] MEDS: ASPIRIN 81 MG CHEW TAB PO SCH (08:44)
[2016-09-11] MEDS: amLODIPine BESYLATE 5 MG TAB PO SCH (08:45)
[2016-09-11] MEDS: SERTRALINE HCL 100 MG TAB PO SCH (08:45)
[2016-09-11] MEDS: QUEtiapine FUMARATE 25 MG TAB PO SCH ×3 (08:45→21:16)
[2016-09-11] MEDS: LACTULOSE SYRUP 20 GM/30 ML CUP PO SCH (08:45)
[2016-09-11] MEDS: MULTIVITAMINS/MINERALS THERAPEUTIC TAB PO SCH (08:45)
[2016-09-11] MEDS: BICALUTAMIDE 50 MG TAB PO SCH (09:00)
[2016-09-11] MEDS: HALOPERIDOL 1 MG TAB PO PRN (09:05)
--- NOTE | 2016-09-11 11:38 | HHI.PYPN ---
Subjective Remarks Patient seen and examined with nurse. Chart reviewed. Case discussed with nursing staff. Patient with ongoing issues with intermittent agitation in the setting of his dementia. This morning, for example, nursing staff notes that the patient was exit seeking and grew agitated and had to be medicated with Haldol PRN. At the time of my evaluation, the patient is calm and confused as at baseline. I do note the hematoma from his recent fall; he cannot recall how he sustained this. He denies side effects from medications and has no physical complaints. Review of Systems ROS Limitations: Poor Historian Except as stated in HPI: all other systems reviewed are Neg Objective Alert: Yes [place]: Person Mood: Calm Affect: Blunted Memory Intact: Comment (Impaired on clinical exam) Hallucinations: Other (no AVH) Delusions: No Delusion Type: Other (No delusions) Suicidal: Ideation (No SI) Homicidal: Ideation (No HI) Insight/Judgment Poor Remarks No abnormal motor movements noted today. Speech somewhat rambling. Labs Labs reviewed. No new labs. Vitals/IOs Vital Signs Date Time Temp Pulse Resp B/P Pulse Ox O2 Delivery O2 Flow Rate FiO2 09/11/16 05:55 97.8 84 18 145/91 92 Intake and Output 09/10/16 09/10/16 09/11/16 08:00 16:00 00:00 Intake Total 240 ml 1680 ml 720 ml Balance 240 ml 1680 ml 720 ml Assessment & Plan Problem List: (1) Schizophrenia ICD Code: F20.9 (2) Dementia ICD Code: F03.90 Assessment & Plan Inadequate response to current scheduled therapy with respect to agitation. Gently titrate Seroquel to 50/50/75 mg to target intermittent behavioral disturbance in the setting of his neurocognitive disorder. Continue other psychotropics as ordered. Continue to monitor on the inpatient unit. Continue other medications and care as ordered. Justification for Cont. Inpt. Impairment in reality construction as a consequence of his neurocognitive disorder. Medication changes in process. High risk for decompensation in a less restrictive environment. Discharge Planning Placement Request HC Surrog/Guard Advoc?: Yes Problem Qualifiers (1) Schizophrenia: Qualified Code: F20.3 - Undifferentiated schizophrenia (2) Dementia: Qualified Code: F03.91 - Dementia with behavioral disturbance, unspecified dementia type Cr Chanel MD September 11, 2016 11:38
[2016-09-11] MEDS: diphenhydrAMINE HCL 25 MG CAP PO PRN (12:46)
[2016-09-11] MEDS: CARBIDOPA/LEVODOPA 25 MG/100 MG TAB PO SCH ×2 (14:23→17:19)
[2016-09-11 16:00] VITALS: BP 136/80; PULSE 88; RESP 18; TEMP 97.4; O2SAT 95
[2016-09-11] MEDS: MELATONIN 5 MG TAB PO PRN (21:16)
[2016-09-11] MEDS: GABAPENTIN 100 MG CAP PO SCH (21:16)
[2016-09-11] MEDS: ATORVASTATIN 20 MG TAB PO SCH (21:16)
[2016-09-12 05:30] VITALS: BP 152/76; PULSE 59; RESP 17; TEMP 98.9
[2016-09-12] MEDS: INSULIN ASPART SUPPLEMENTAL SCALE SQ SCH ×4 (06:11→21:00)
[2016-09-12] MEDS: amLODIPine BESYLATE 5 MG TAB PO SCH (09:00)
[2016-09-12] MEDS: BICALUTAMIDE 50 MG TAB PO SCH (09:00)
[2016-09-12] MEDS: SERTRALINE HCL 100 MG TAB PO SCH (09:00)
[2016-09-12] MEDS: LACTULOSE SYRUP 20 GM/30 ML CUP PO SCH (09:00)
[2016-09-12] MEDS: QUEtiapine FUMARATE 25 MG TAB PO SCH ×3 (09:00→21:06)
[2016-09-12] MEDS: CARBIDOPA/LEVODOPA 25 MG/100 MG TAB PO SCH ×3 (09:00→17:30)
[2016-09-12] MEDS: MULTIVITAMINS/MINERALS THERAPEUTIC TAB PO SCH (09:00)
[2016-09-12] MEDS: ASPIRIN 81 MG CHEW TAB PO SCH (09:00)
--- NOTE | 2016-09-12 13:16 | HHI.PYPN ---
Subjective Remarks Patient seen and examined. Chart reviewed. Case discussed with nursing staff who reports the patient has been a behavioral problem. Case additionally discussed with counselor who reports that the patient has been accepted at [facility] and can be discharged there tomorrow. On my examination today, patient is calm and ambulating around the unit with a steady gait. He remains at his confused baseline. No evidence of psychosis. No SI or HI. No side effects from medications. No physical complaints. Review of Systems ROS Limitations: Poor Historian Except as stated in HPI: all other systems reviewed are Neg Objective Alert: Yes [place]: Person Mood: Calm Affect: Blunted (remains somewhat blunted) Memory Intact: Comment (remains impaired on clinical examination) Hallucinations: Other (No audiovisual hallucinations) Delusions: No Delusion Type: Other (no delusional material) Suicidal: Ideation (no suicidal ideation) Homicidal: Ideation (no homicidal ideation) Insight/Judgment Poor Remarks No motor abnormalities noted. Right eyelid swelling appears to be improving. Labs Labs reviewed. Vitals/IOs Vital Signs Date Time Temp Pulse Resp B/P Pulse Ox O2 Delivery O2 Flow Rate FiO2 09/12/16 05:30 98.9 59 17 152/76 09/11/16 16:00 95 Intake and Output 09/11/16 09/11/16 09/12/16 08:00 16:00 00:00 Intake Total 240 ml 1600 ml 1140 ml Balance 240 ml 1600 ml 1140 ml Assessment & Plan Problem List: (1) Schizophrenia ICD Code: F20.9 (2) Dementia ICD Code: F03.90 Assessment & Plan Continue current psychotropics as ordered. Continue to monitor on the inpatient unit. Continue other medications and care as ordered. Justification for Cont. Inpt. Final discharge planning Discharge Planning Anticipate discharged [facility] tomorrow, Friday. Request HC Surrog/Guard Advoc?: Yes Problem Qualifiers (1) Schizophrenia: Qualified Code: F20.3 - Undifferentiated schizophrenia (2) Dementia: Qualified Code: F03.91 - Dementia with behavioral disturbance, unspecified dementia type Cr Chanel MD September 12, 2016 13:16
[2016-09-12 17:36] VITALS: BP 141/72; PULSE 60; RESP 17; TEMP 98.1; O2SAT 96
[2016-09-12] MEDS: ATORVASTATIN 20 MG TAB PO SCH (21:06)
[2016-09-12] MEDS: MELATONIN 5 MG TAB PO PRN (21:06)
[2016-09-12] MEDS: GABAPENTIN 100 MG CAP PO SCH (21:06)
[2016-09-12] MEDS: ACETAMINOPHEN 325 MG TAB PO PRN (22:03)
[2016-09-13] MEDS: INSULIN ASPART SUPPLEMENTAL SCALE SQ SCH ×2 (06:19→11:00)
[2016-09-13 06:50] VITALS: BP 151/88; PULSE 60; RESP 18; TEMP 97.7; O2SAT 100
[2016-09-13] MEDS ORDERED: LACT10SO PO (08:04)
[2016-09-13] MEDS ORDERED: AMLO5 PO (08:04)
[2016-09-13] MEDS ORDERED: GABA100C4 PO (08:04)
[2016-09-13] MEDS ORDERED: QUET1TAB7 PO ×2 (08:04)
[2016-09-13] MEDS ORDERED: SERT-129 PO (08:04)
[2016-09-13] MEDS ORDERED: SINE25TA PO (08:04)
[2016-09-13] MEDS ORDERED: ASPI81CH3 CHEW (08:04)
[2016-09-13] MEDS ORDERED: GNP5TAB6 PO (08:04)
[2016-09-13] MEDS ORDERED: BICA50TA PO (08:04)
[2016-09-13] MEDS ORDERED: ATOR20TA15 PO (08:04)
--- NOTE | 2016-09-13 08:05 | HHI.DS ---
Psychiatry Discharge Summary Inpatient Psychiatric care?: Yes Advance Directive: No Reason Not Provided: none Mental Health AdvanceDirective: No Health Care Proxy: No Admission Admission Date August 20, 2016 at 21:48 Admission Diagnosis: (1) Schizophrenia ICD Code: F20.9 Brief History Mr. Brar is a 71 year-old male with a history of schizophrenia , depression and anxiety disorder per notes from his outpatient psychiatrist who presents from his [facility] under a Beck act by [facility]'s office alleging that the patient has been delusional and acting out at his facility. I have reviewed the documentation that accompanies the patient from the facility including a medication administration record, notes from the patient's outpatient psychiatrist as well as nursing notes from the facility. Reviewing I electronic medical record, I see no prior psychiatric contact at [place]. Patient seen and examined. Chart reviewed. Case discussed with nurse on the inpatient psychiatric unit. Per nursing staff, there has been no behavioral disturbance observed here on the unit. On my examination today, the patient presents as confused. He is calm and generally cooperative with examination however. Mental status testing is detailed below. He denies any audiovisual hallucinations. I can elicit no frankly delusional beliefs, although his thoughts do seem fairly disorganized. He denies any suicidal or homicidal ideation. He denies any issues with mood. Psychiatric interview is limited because of his current cognitive impairment. I am unable to obtain any past psychiatric, family, chemical dependency or social history from this patient because of his degree of psychiatric impairment. Tobacco Use In Past 30 Days: No Tobacco Past 30 Days Alcohol Use: Monthly or Less Hospital Course Patient was admitted to a locked, inpatient psychiatric unit. A general medical consultation was obtained. Appropriate precautions were in place throughout patient's hospital stay. Patient was seen and examined on the unit by psychiatry and also visited by counselor. Medications were adjusted. Patient did initially experience some sedation from titration of Seroquel, and so the dose was dropped and re-titrated more slowly, and the patient tolerated this medication and other psychotropics well thereafter. Patient had improvement in his presenting psychiatric symptomatology during the course of his hospital stay. Behavioral disturbance in the setting of his dementia improved. There was no evidence of any suicidality or homicidality on the inpatient unit. Counselor arranged for placement at [facility]. On the day of discharge: Patient seen and examined. Chart reviewed. Case discussed with nursing staff who reports that patient has been no behavioral problem and slept well overnight. On my examination today, patient remains at his confused baseline. He is calm and cooperative with examination. He denies AVH. No suicidal or homicidal ideation, intent or plan. No reported physical complaints or side effects from medications. Weighing the acute, chronic, and protective factors, I bleach boiler filler that the patient is at lower imminent risk of harm to self or others from a mental illness as defined under the Beck Act. He has maximized benefit from this inpatient psychiatric hospital stay. He will be discharged today to [facility] with psychiatric follow up as arranged by counselor. He is also to follow up with primary care. Patient to return to psychiatric emergency room for any concerning psychiatric symptoms. Results Blood Pressure 151 / 88 Vital Signs Date Time Temp Pulse Resp B/P Pulse Ox O2 Delivery O2 Flow Rate FiO2 09/13/16 06:50 97.7 60 18 151/88 100 Item Value Date Time White Blood Count 4.3 TH/MM3 08/30/16 1342 Hemoglobin 11.5 GM/DL L 08/30/16 1342 Platelet Count 165 TH/MM3 08/30/16 1342 Sodium Level 138 MEQ/L 08/30/16 1342 Potassium Level 4.1 MEQ/L 08/30/16 1342 Chloride Level 102 MEQ/L 08/30/16 1342 Carbon Dioxide Level 29.6 MEQ/L 08/30/16 1342 Blood Urea Nitrogen 27 MG/DL H 08/30/16 1342 Creatinine 1.51 MG/DL H 08/30/16 1342 Random Glucose 123 MG/DL H 08/30/16 1342 Aspartate Amino Transf (AST/SGOT) 24 U/L 08/30/16 1342 Alanine Aminotransferase (ALT/SGPT) 8 U/L L 08/30/16 1342 Alkaline Phosphatase 132 U/L H 08/30/16 1342 Ammonia 14 MCMOL/L 08/21/16 1352 Vitamin B12 Level 676 PG/ML 08/21/16 1352 Thyroid Stimulating Hormone 3rd Gen 0.771 uIU/ML 08/21/16 1352 Urine Opiates Screen NEG 08/20/16 1450 Urine Barbiturates Screen NEG 08/20/16 1450 Urine Amphetamines Screen NEG 08/20/16 1450 Urine Benzodiazepines Screen NEG 08/20/16 1450 Urine Cocaine Screen NEG 08/20/16 1450 Urine Cannabinoids Screen NEG 08/20/16 1450 Rapid Plasma Reagin NON-REACTIVE 08/21/16 1352 Summary of Procedures None done. Imaging Last Impressions Head CT 09/09/16 0000 Signed Impressions: Service Date/Time: Friday, September 09, 2016 08:32 - CONCLUSION: 1. Cephalhematoma over the right frontal bone/supraorbital region extending down to the nasal bridge. No associated fracture. 2. Otherwise negative. No acute intracranial process or trauma. Geovanny Minor MD Pending results at discharge: No Medications # of Antipsychotic meds at D/C: 1 Approp Antipsych med options 1 - Minimum of three failed multiple trials of monotherapy. 2 - Documented plan to taper to monotherapy due to previous use of multiple meds OR cross-taper in progress at D/C. 3 - Documentation of augmentation of Clozapine. 4 - Justification other than those listed in allowable values 1-3, document here : Discharge Discharge Date: September 13, 2016 Discharge Diagnosis: (1) Dementia Diagnosis: Principal (stable, now without behavioral disturbance) ICD Code: F03.90 (2) Schizophrenia Diagnosis: Secondary (stable) ICD Code: F20.9 Mental Status Exam at Disch Patient is casually dressed. He is fairly well groomed. He is awake and alert and oriented to person only. No abnormal motor movements noted besides a mild resting hand tremor in this patient with a history of Parkinson's Disease. Speech is somewhat rambling. Language and fund of knowledge as well as memory are reduced for age, consistent with dementia diagnosis. Mood is fair and affect is somewhat blunted. Thought process somewhat disorganized consistent with dementia diagnosis. No delusional material elicited. Patient denies AVH. No suicidal or homicidal ideation. Insight and judgement are poor, chronically so. Pt Condition on Discharge: Stable Discharge Disposition: ACLF/INTERMEDIATE Discharge Instructions Diet Instructions: Heart Healthy Diet Activities you can perform: Weight Bearing as Saima Scheduled Appointment: as per counselor's notes New Medications: Amlodipine (Norvasc) 5 Mg Tab 5 MG PO DAILY Blood Pressure Management Days 15 Ref 1 TAB Melatonin (Gnp Melatonin Maximum Str) 5 Mg Tab 5 MG PO HS PRN INSOMNIA Days 15 Ref 1 TAB Quetiapine (Quetiapine) 25 Mg Tab 50 MG PO BID@,15 Mental Health Days 15 Ref 1 TAB Quetiapine (Quetiapine) 25 Mg Tab 75 MG PO HS Mental Health Days 15 Ref 1 TAB Continued Medications: Acetaminophen (Mapap) 325 Mg Tab 650 MG PO Q6HR PRN MUSCULAR BACK PAIN Ref 0 TAB Artificial Tear Solution Opth Drops (Tears Again Opth Drops) 1.4% Soln 1 DROP EACH EYE QID PRN DRY EYE Aspirin (Aspirin 81 Low Dose) 81 Mg Chew 81 MG CHEW DAILY Health Days 15 Ref 1 TAB (This prescription has been renewed) Atorvastatin (Atorvastatin) 20 Mg Tab 20 MG PO HS Cholesterol Management Days 15 Ref 1 TAB (This prescription has been renewed) Bicalutamide (Bicalutamide) 50 Mg Tab 50 MG PO DAILY Hazardous agent; use appropriate precautions for handling & disposal. PROSTATE CANCER Days 15 Ref 1 TAB (This prescription has been renewed) Bisacodyl Supp (Dulcolax Supp) 10 Mg Supp 10 MG RECTAL DAILY PRN IF NO BM FROM MOM #12 Ref 0 SUPP Carbidopa-Levodopa (Sinemet) 25-100 Mg Tab 1 TAB PO TID Parkinson Disease Mgmt Days 15 Ref 1 TAB (This prescription has been renewed) Gabapentin (Gabapentin) 100 Mg Cap 100 MG PO HS Pain Management Days 15 Ref 1 CAP (This prescription has been renewed) Lactulose Liq (Lactulose Liq) 10 Gm/15 Ml Soln 10 ML PO DAILY Health Days 15 Ref 1 ML (This prescription has been renewed) Magnesium Hydroxide Liq (Milk of Magnesia Liq) 400 Mg/5 Ml Susp 30 ML PO Q4HR PRN CONSTIPATION #1 Ref 0 BOTTLE Multiple Vitamins W/ Minerals (Theragran-M) 1 Tab 1 TAB PO DAILY Nutritional Supplement Ref 0 TAB Sertraline (Sertraline) 100 Mg Tab 100 MG PO DAILY Mental Health Days 15 Ref 1 TAB (This prescription has been renewed) Sodium Phosphates Rectal (Fleet Enema Rectal) 7-19 Gm/118 Ml Enem 118 ML RECTAL DAILY PRN IF NO BM X 48HRS FROM SUPP Ref 0 BOTTLE Discontinued Medications: Najdorql-Bljbaszte-Dynrrqgwvgi Liq (Mylanta Liq) 200-200-20 Mg/5 Ml Susp 30 ML PO Q4HR Take between meals or as directed. Shake well. Maximum 120 ml/24 hrs. PRN INDIGESTION Ref 0 ML Divalproex ER (Depakote ER) 500 Mg Jennifer 500 MG PO HS PTSD #30 Ref 0 TAB Lisinopril (Lisinopril) 20 Mg Tab 20 MG PO BID #30 Ref 0 TAB Loperamide (Loperamide) 2 Mg Cap 2 MG PO DIRECTED Give two capsules for the initial dose, then one capsule after each loose stool. Not to exceed 8 capsules per day. PRN DIARRHEA Ref 0 CAP Loperamide Liq (Loperamide Liq) 1 Mg/5 Ml Liq 2 MG PO DIRECTED Give 4mg (20ml) for the initial dose then 2 mg (10 mL) after each loose stool. Not to exceed 16 mg (80 mL) per day. PRN DIARRHEA #1 Ref 0 BOTTLE Lorazepam (Lorazepam) 0.5 Mg Tab 0.5 MG PO TID PRN AGITATION Ref 0 TAB Risperidone (Risperdal) 1 Mg Tab 1 MG PO BID PSYCHOSIS #60 Ref 0 TAB Discharge Time <= 30 minutes Discharge/Advance Care Plan Health Problems: (1) Schizophrenia (2) Dementia Goals to promote your health * To prevent worsening of your condition and complications * To maintain your health at the optimal level Directions to meet your goals Take your medications as prescribed Follow your dietary instruction Follow activity as directed Keep your appointments as scheduled Take your immunizations and boosters as scheduled If your symptoms worsen call your PCP, if no PCP go to Urgent Care Center or Emergency Room For 11/11 questions related to your inpatient stay or results of tests pending at discharge, please contact Dr. Cr Chanel at Smoking is Dangerous to Your Health. Avoid second hand smoking Problem Qualifiers (1) Schizophrenia: Qualified Code: F20.3 - Undifferentiated schizophrenia (2) Dementia: Qualified Code: F03.91 - Dementia with behavioral disturbance, unspecified dementia type Cr Chanel MD September 13, 2016 08:05
[2016-09-13] MEDS: ASPIRIN 81 MG CHEW TAB PO SCH (09:41)
[2016-09-13] MEDS: MULTIVITAMINS/MINERALS THERAPEUTIC TAB PO SCH (09:41)
[2016-09-13] MEDS: SERTRALINE HCL 100 MG TAB PO SCH (09:41)
[2016-09-13] MEDS: BICALUTAMIDE 50 MG TAB PO SCH (09:41)
[2016-09-13] MEDS: CARBIDOPA/LEVODOPA 25 MG/100 MG TAB PO SCH (09:41)
[2016-09-13] MEDS: LACTULOSE SYRUP 20 GM/30 ML CUP PO SCH (09:41)
[2016-09-13] MEDS: amLODIPine BESYLATE 5 MG TAB PO SCH (09:41)
[2016-09-13] MEDS: QUEtiapine FUMARATE 25 MG TAB PO SCH (09:52)
== END 2016-09-13 11:50 | DRG 884 ==
LOC: NEPC 13:10 → NEDA 21:48 → H250 23:10
PROVIDERS: ADMIT Psychiatry & Neurology Psychiatry; ATTEND Psychiatry & Neurology Psychiatry
DX: F03.91 Unspecified dementia, unspecified severity, with behavioral disturbance (principal); D69.6 Thrombocytopenia, unspecified; G20 Parkinson's disease; F20.3 Undifferentiated schizophrenia; I12.9 Hypertensive chronic kidney disease with stage 1 through stage 4 chronic kidney disease, or unspecified chronic kidney disease; N18.9 Chronic kidney disease, unspecified; D63.1 Anemia in chronic kidney disease; F32.9 Major depressive disorder, single episode, unspecified; F41.9 Anxiety disorder, unspecified; H91.91 Unspecified hearing loss, right ear; M19.90 Unspecified osteoarthritis, unspecified site; E78.5 Hyperlipidemia, unspecified; Z91.83 Wandering in diseases classified elsewhere; Z79.899 Other long term (current) drug therapy; Z87.891 Personal history of nicotine dependence; W19.XXXA Unspecified fall, initial encounter; Y92.239 Unspecified place in hospital as the place of occurrence of the external cause
CPT/HCPCS: 70450; 80048; 80053; 80164; 80307; 81001; 82140; 82607; 82728; 82948; 83036; 83540; 83550; 84443; 85025; 86592; 96372; J1200; J1630; J1815; J2060

== ENCOUNTER 2017-01-01 22:07 | Emergency (ER) | payer OTHER ==
[~2017-01-01] VITALS: Ht 182.9 cm; Wt 75.0 kg
[~2017-01-01 22:07] MED LIST changes: +AMLO5 PO; +ASPI81CH3 CHEW; +ATOR20TA15 PO; +BICA50TA PO; -CARB25TA PO; -CLON.1 PO; +DULC10SU3 RECTAL; +FLEEENE3 RECTAL; +GABA100C4 PO; -GLIP5 PO; +GNP5TAB6 PO; +LACT10SO PO; +MAPA325T PO; +MILKSUS PO; +QUET1TAB7 PO; +SERT-129 PO; +SINE25TA PO; +TEARSOL10 EACH EYE; +THERTAB27 PO
[2017-01-01 22:50] VITALS: BP 151/93; PULSE 50; RESP 16; TEMP 98.4; O2SAT 96
--- NOTE | 2017-01-01 23:33 | RADRPT ---
EXAM DATE/TIME: 01/01/2017 23:08 [place] COMPARISON: No previous studies available for comparison. INDICATIONS : Left lower quadrant pain for 3 days MEDICAL HISTORY : Cardiovascular disease. Hypertension. Parkinsons.Schizophrenia SURGICAL HISTORY : ENCOUNTER: Initial ACUITY: 3 days PAIN SCORE: 5/10 LOCATION: Left lower quadrant FINDINGS: Supine and upright views of the abdomen were performed. Stool throughout the colon characteristic of some degree of constipation. Small calcific densities are seen projecting to the left of the L1 verte bral body with a crescentic calcification just inferior to the left SI joint. Both calcifications are nonspecific but I cannot exclude small ureteric/renal stones. CONCLUSION: 1. Nonspecific calcifications on the left as above. Cannot exclude ureteric stones. 2. Stool scattered throughout the colon characteristic of some degree of constipation. Geovanny Minor MD on January 01, 2017 at 23:29 Board Certified Radiologist. This report was verified electronically.
[2017-01-01 23:39] LABS: BASOPHIL % 0.4 % (0.0-2.0); HEMATOCRIT 34.2 % (39.0-51.0); HEMO FLAGS DIFF FINAL; LYMPHOCYTE # 1.7 TH/MM3 (1.0-4.8); MEAN CELL VOLUME 88.7 FL (80.0-100.0); MEAN CORPUSCULAR HEMOGLOBIN 29.9 PG (27.0-34.0); MEAN CORPUSCULAR HGB CONC 33.7 % (32.0-36.0); MONO % 7.7 % (0.0-8.0); NEUT % 49.9 % (16.0-70.0); PLATELET COUNT 148 TH/MM3 (150-450); RED BLOOD COUNT 3.85 MIL/MM3 (4.50-5.90); RED CELL DISTRIBUTION WIDTH 13.2 % (11.6-17.2); WHITE BLOOD COUNT 4.1 TH/MM3 (4.0-11.0)
[2017-01-02 00:03] LABS: ANION GAP 5 MEQ/L (5-15); AST (GOT) 18 U/L (15-37); BICARBONATE 29.4 MEQ/L (21.0-32.0); BLOOD UREA NITROGEN 27 MG/DL (7-18); CHLORIDE 104 MEQ/L (98-107); GLOMERULAR FILTRATION RATE 69 ML/MIN (>89); SODIUM (NA) 138 MEQ/L (136-145)
[2017-01-02 00:05] LABS: ALT (GPT) 14 U/L (12-78)
[2017-01-02 00:07] LABS: ALKALINE PHOSPHATASE 118 U/L (45-117); TOTAL BILIRUBIN ADULT 0.4 MG/DL (0.2-1.0)
--- NOTE | 2017-01-02 00:47 | PD ---
HPI Chief Complaint: Lump, Cyst, Hernia Time Seen by Provider: 22:37 Travel History International Travel<30 days: No Contact w/Intl Traveler<30days: No Traveled to known affect area: No History of Present Illness HPI Patient is a 71-year-old male with history of dementia/schizophrenia, who comes in to have his hernia checked. Patient is unable to provide any history. He is sitting comfortably, does not really answer questions appropriately. PFSH Past Medical History Arthritis: No Asthma: No Autoimmune Disease: No Blood Disorders: No Anxiety: Yes Depression: Yes Heart Rhythm Problems: No Cancer: No Cardiovascular Problems: Yes (HTN) High Cholesterol: No Chemotherapy: No Chest Pain: No Congestive Heart Failure: No COPD: No Cerebrovascular Accident: No Diabetes: No Diminished Hearing: Yes (R EAR) Endocrine: No Gastrointestinal Disorders: No GERD: No Genitourinary: Yes Hiatal Hernia: No Hypertension: Yes Immune Disorder: No Kidney Stones: No Musculoskeletal: Yes (DJD) Neurologic: No Parkinson's Disease: Yes Psychiatric: Yes (Schizophreniai) Reproductive: Yes (DIFFICULTY URINATING CHRONICALLY) Respiratory: No Migraines: No Myocardial Infarction: No Radiation Therapy: No Renal Failure: No Seizures: No Sickle Cell Disease: No Sleep Apnea: No Thyroid Disease: No Ulcer: No Past Surgical History Abdominal Surgery: No AICD: No Arteriovenous Shunt: No Cardiac Surgery: No Ear Surgery: No Endocrine Surgery: No Eye Surgery: No Genitourinary Surgery: No Gynecologic Surgery: No Insulin Pump: No Joint Replacement: No Oral Surgery: No Pacemaker: No Thoracic Surgery: No Other Surgery: Yes (CYST REMOVED FROM BACK) Social History Alcohol Use: Yes (RARE) Tobacco Use: No (QUIT ) Substance Use: No Allergies-Medications (Allergen,Severity, Reaction): Coded Allergies: penicillin G (Unverified Allergy, Mild, SWELLING, 12/03/16) Reported Meds & Prescriptions Reported Meds & Active Scripts Active Quetiapine (Quetiapine Fumarate) 25 Mg Tab 75 Mg PO HS 15 Days Quetiapine (Quetiapine Fumarate) 25 Mg Tab 50 Mg PO BID@09,15 15 Days Gnp Melatonin Maximum Str (Melatonin) 5 Mg Tab 5 Mg PO HS PRN 15 Days Norvasc (Amlodipine Besylate) 5 Mg Tab 5 Mg PO DAILY 15 Days Sertraline (Sertraline HCl) 100 Mg Tab 100 Mg PO DAILY 15 Days Lactulose Liq (Lactulose) 10 Gm/15 Ml Soln 10 Ml PO DAILY 15 Days Gabapentin 100 Mg Cap 100 Mg PO HS 15 Days Sinemet (Carbidopa-Levodopa) 25-100 Mg Tab 1 Tab PO TID 15 Days Bicalutamide 50 Mg Tab 50 Mg PO DAILY 15 Days Hazardous agent; use appropriate precautions for handling & disposal. Atorvastatin (Atorvastatin Calcium) 20 Mg Tab 20 Mg PO HS 15 Days Aspirin 81 Low Dose (Aspirin) 81 Mg Chew 81 Mg CHEW DAILY 15 Days Reported Tears Again Opth Drops (Artificial Tear Solution Opth Drops) 1.4% Soln 1 Drop EACH EYE QID PRN Milk of Magnesia Liq (Magnesium Hydroxide) 400 Mg/5 Ml Susp 30 Ml PO Q4HR PRN Fleet Enema Rectal (Sodium Phosphates Rectal) 7-19 Gm/118 Ml Enem 118 Ml RECTAL DAILY PRN Dulcolax Supp (Bisacodyl) 10 Mg Supp 10 Mg RECTAL DAILY PRN Mapap (Acetaminophen) 325 Mg Tab 650 Mg PO Q6HR PRN Theragran-M (Multiple Vitamins W/ Minerals) 1 Tab 1 Tab PO DAILY Review of Systems ROS Limitations: Other: (dementia/schizophrenia) Physical Exam Narrative GENERAL: Awake and alert, in no acute distress. SKIN: Focused skin assessment warm/dry. HEAD: Atraumatic. Normocephalic. EYES: Pupils equal and round. No scleral icterus. Extraocular movements intact. ENT: Mucous membranes pink and moist. NECK: Trachea midline. No JVD. CARDIOVASCULAR: Regular rate and rhythm. No murmur appreciated. RESPIRATORY: No accessory muscle use. Clear to auscultation. Breath sounds equal bilaterally. GASTROINTESTINAL: Abdomen soft, non-tender, nondistended. Left sided ventral hernia, easily reducible. MUSCULOSKELETAL: No obvious deformities. No clubbing. No cyanosis. No edema. NEUROLOGICAL: Awake and alert oriented to person only. No obvious cranial nerve deficits. Motor grossly within normal limits. Normal speech. PSYCHIATRIC: Appropriate mood and affect; insight and judgment normal. Data Data Last Documented VS Vital Signs Date Time Temp Pulse Resp B/P (MAP) Pulse Ox O2 Delivery O2 Flow Rate FiO2 01/01/17 22:50 98.4 50 16 151/93 (112) 96 Orders Orders Complete Blood Count With Diff (01/01/17 22:49) Comprehensive Metabolic Panel (01/01/17 22:49) Lactic Acid (01/01/17 22:49) Iv Access Insert/Monitor (01/01/17 22:49) Abdomen, Flat & Upright (01/01/17 ) Labs Laboratory Tests Test 01/01/17 23:25 White Blood Count 4.1 TH/MM3 Red Blood Count 3.85 MIL/MM3 Hemoglobin 11.5 GM/DL Hematocrit 34.2 % Mean Corpuscular Volume 88.7 FL Mean Corpuscular Hemoglobin 29.9 PG Mean Corpuscular Hemoglobin Concent 33.7 % Red Cell Distribution Width 13.2 % Platelet Count 148 TH/MM3 Mean Platelet Volume 8.9 FL Neutrophils (%) (Auto) 49.9 % Lymphocytes (%) (Auto) 41.0 % Monocytes (%) (Auto) 7.7 % Eosinophils (%) (Auto) 1.0 % Basophils (%) (Auto) 0.4 % Neutrophils # (Auto) 2.0 TH/MM3 Lymphocytes # (Auto) 1.7 TH/MM3 Monocytes # (Auto) 0.3 TH/MM3 Eosinophils # (Auto) 0.0 TH/MM3 Basophils # (Auto) 0.0 TH/MM3 CBC Comment DIFF FINAL Differential Comment Blood Urea Nitrogen 27 MG/DL Creatinine 1.25 MG/DL Random Glucose 97 MG/DL Total Protein 7.1 GM/DL Albumin 3.8 GM/DL Calcium Level 9.0 MG/DL Alkaline Phosphatase 118 U/L Aspartate Amino Transf (AST/SGOT) 18 U/L Alanine Aminotransferase (ALT/SGPT) 14 U/L Total Bilirubin 0.4 MG/DL Sodium Level 138 MEQ/L Potassium Level 4.0 MEQ/L Chloride Level 104 MEQ/L Carbon Dioxide Level 29.4 MEQ/L Anion Gap 5 MEQ/L Estimat Glomerular Filtration Rate 69 ML/MIN Lactic Acid Level 0.5 mmol/L MDM Medical Decision Making Medical Screen Exam Complete: Yes Emergency Medical Condition: Yes Medical Record Reviewed: Yes Differential Diagnosis Incarcerated hernia versus strangulated hernia versus reducible hernia Narrative Course Patient is a 71-year-old male who was sent from his living facility to check his hernia. Hernia was easily reducible. Patient is in no pain. Labs sent show no acute abnormalities. Abdominal x-ray shows constipation, no other issues. Patient be discharged home. Advised follow-up with a general surgeon regarding the hernia. Advised to return to the ED as needed for any worsening symptoms. Diagnosis Primary Impression: Hernia Referrals: Alexis Dotson MD call for appointment Patient Instructions: General Instructions, Inguinal Hernia (ED) Additional Instructions: Follow-up with Gen. surgery. Return to the ED if the hernia seems to be stuck, is very painful, he has nausea or vomiting. Disposition: 03 DISCHARGE TO SNF Condition: Stable Latosha Waite MD Jan 02, 2017 00:47
[2017-01-02 07:30] VITALS: BP 161/70; PULSE 58; RESP 19; O2SAT 97
[2017-01-02 11:00] VITALS: BP 161/74; PULSE 60; RESP 18; O2SAT 97
== END 2017-01-02 11:51 ==
LOC: NEPC 22:07
DX: K43.9 Ventral hernia without obstruction or gangrene (principal); F03.90 Unspecified dementia, unspecified severity, without behavioral disturbance, psychotic disturbance, mood disturbance, and anxiety; I10 Essential (primary) hypertension; G20 Parkinson's disease; H91.91 Unspecified hearing loss, right ear; Z86.59 Personal history of other mental and behavioral disorders; Z86.79 Personal history of other diseases of the circulatory system; Z87.39 Personal history of other diseases of the musculoskeletal system and connective tissue
CPT/HCPCS: 74020; 80053; 83605; 85025; 99284